=== PATIENT | female | born 1995 | race Caucasian/White ===

== ENCOUNTER → 2017-03-17 | Outpatient (CLI) | payer BC, MEDICAID, SELFPAY | PROVIDERS: Visit Provider Nurse Practitioner Family | DX: E55.9 Vitamin D deficiency, unspecified; E66.9 Obesity, unspecified; Z68.37 Body mass index [BMI] 37.0-37.9, adult; R53.83 Other fatigue | CPT/HCPCS: 80053; 80061; 82306; 83036; 84439; 84443; 85025 ==

== ENCOUNTER 2017-04-13 19:19 | Emergency (ER) | payer BC, MEDICAID, SELFPAY | END 2017-04-13 19:31 | disposition left against medical advice (07) | PROVIDERS: Emergency Provider Nurse Practitioner Family; Family Provider Internal Medicine Adolescent Medicine; Visit Provider Nurse Practitioner Family | DX: Z53.29 Procedure and treatment not carried out because of patient's decision for other reasons (principal) | CPT/HCPCS: 99211 ==

== ENCOUNTER 2019-11-21 07:35 | Emergency (ER) | payer BC, SELFPAY ==
[2019-11-21] VITALS (8 sets, daily range): BP systolic 112–135; BP diastolic 55–71; PULSE 58–107; RESP 16–22; TEMP 36.6; O2SAT 98–100; BMI 33.6
--- NOTE | 2019-11-21 07:55 | CT_ITS ---
PROCEDURE: CT ABDOMEN PELVIS W CON CLINICAL INDICATION: abd pain Upper abdominal pain COMPARISON: No exams were available for comparison TECHNIQUE: IV Contrast: 75ML OPTIRAY 350 Oral Contrast None Axial images obtained with sagittal and coronal reformats. All CT scans at the facility use one or more dose reduction, viz: automated exposure control, ma/kV adjustment per patient size (including targeted exams where dose is matched to indication, i.e. head), or iterative reconstruction technique. FINDINGS: LOWER THORAX: 4 mm noncalcified nodule in the left lower lobe nonspecific. ABDOMEN & PELVIS: The liver, gallbladder, spleen, adrenal glands, pancreas, and kidneys have an unremarkable appearance. No evidence of intestinal obstruction or free air. No evidence of appendicitis. There is a mild amount of retained colonic feces. No pelvic mass evident. There is a minimal amount of fluid in the pelvis nonspecific There is mild sclerosis of the SI joints on both sides IMPRESSION: 1. No acute abdominal or pelvic findings. 2. Mild amount of retained colonic feces. 3. Sacroiliitis 4. Nonspecific 4 mm left lower lobe nodule Dictated by: Alvaro Montes MD 11/21/2019 08:57 Electronically signed by Alvaro Montes MD in [place] 11/21/2019 08:57
[2019-11-21 08:04] LABS: Basophils # 0.1 K/mm3 (0-0.2); Basophils % 0.5 % (0.1-2.0); Eosinophils # 0.1 K/mm3 (0.0-0.4); Eosinophils % 0.9 % (0.1-12.0); Hematocrit 40.5 % (37.0-47.0); Hemoglobin 14.3 g/dL (12.2-16.2); Lymphocytes % 19.8 % (10-50); Mean Corpuscular HGB Conc 35.3 g/dL (31.8-35.4); Mean Corpuscular Volume 85.1 fl (81-99); Mean Platelet Volume 7.3 fl (7.4-10.4); Microscopic, Urine URINE MICROSCOPIC (MICROSCOPIC); Monocytes # 0.6 K/mm3 (0.1-1.0); Monocytes % 5.7 % (1.7-9.3); Neutrophils # 7.5 K/mm3 (1.8-7.8); Platelet Count 311 K/mm3 (142-424); Red Blood Count 4.76 M/mm3 (4.20-5.40); Red Cell Distribution Width 12.9 % (11.5-17.5); White Blood Count 10.3 K/mm3 (4.8-10.8)
[2019-11-21 08:06] LABS: Appearance,Urine CLEAR (Clear); Bilirubin,Urine Negative (Negative); Blood, Urine Negative (Negative); Color,Urine YELLOW (Yellow); Glucose,Urine (UA) Negative (Negative); Ketones,Urine Negative (Negative); Leukocyte Esterase,Urine Negative (Negative); Nitrate,Urine Negative (Negative); Protein,Urine Negative (Negative); Specific Gravity, Urine 1.025 (1.005-1.030); Urobilinogen,Urine 0.2 EU/dl (0.2)
[2019-11-21 08:08] LABS: Urine Pregnancy, HCG Qual. Negative (Negative)
[2019-11-21 08:10] LABS: Chloride 104 mmol/L (98-107); Potassium 3.8 mmoL/L (3.5-5.1); Sodium 138 mmol/L (136-145)
[2019-11-21 08:13] LABS: Alanine Aminotransferase 16 U/L (12-78); Alkaline Phosphatase 56 U/L (38-126); Amylase 718 U/L (30-110); Anion Gap 12.8 mEq/L (5-15); Aspartate Amino Transferase 24 U/L (14-36); Bilirubin,Total 2.1 mg/dl (0.2-1.3); Blood Urea Nitrogen 17 mg/dl (7-17); Calcium 9.4 mg/dl (8.4-10.2); Carbon Dioxide 25 mmol/L (22.0-30.0); Creatinine Clearance Estimated 223 mL/min (50-200); Estimated Glomerular Filt Rate 123 ml/min (>60); GFR (African American) 149 ML/MIN (>60); Glucose 100 mg/dl (74-100)
[2019-11-21 08:14] LABS: Albumin Level 4.7 g/dl (3.5-5.0); Albumin/Globulin Ratio 1.3 (1.1-1.8); Globulin 3.7 g/dL (1.3-3.2); Total Protein,Serum 8.4 g/dl (6.3-8.2)
[2019-11-21 08:18] LABS: RBC,Urine Occasional #/hpf (0-3)
[2019-11-21 08:38] LABS: Lipase 15842 U/L (23-300)
--- NOTE | 2019-11-21 08:40 | US_ITS ---
PROCEDURE: US GALLBLADDER CLINICAL INDICATION: pain Right upper quadrant pain COMPARISON: No exams were available for comparison FINDINGS: Pancreas: Unremarkable/Not well seen Liver: Unremarkable. There is appropriate direction of blood flow within a non dilated portal vein. Right kidney: Unremarkable appearing. No hydronephrosis. Gallbladder: No stones are evident. There is no gallbladder wall thickening. Common duct is normal in diameter. IMPRESSION: Negative gallbladder ultrasound. No stones evident. Dictated by: Alvaro Montes MD 11/21/2019 10:30 Electronically signed by Alvaro Montes MD in [place] 11/21/2019 10:30
--- NOTE | 2019-11-21 08:40 | PC.NURSE ---
Notified rad of need for GB US
--- NOTE | 2019-11-21 08:45 | HMH.EDABDPAI ---
ED Disposition Clinical Impression: Gallstone pancreatitis Disposition: Xfer Critical Access Hosp Condition on Discharge: Fair Referrals: Felipe Bowers MD [Primary Care Provider] - Time of Disposition: 12:18 - Critical Care Critical Care Time: No Attestation: On 11/21/19, the high probability of a clinically significant, sudden or life threatening deterioration of the following system(s) required my full and direct attention, intervention and personal management. The time I documented below is in addition to time spent performing reported procedures but includes the following listed in this critical care notation. Medical Decision Making - Medical Records Medical records reviewed: Yes: I reviewed the patient's medical records. - Behzad Inquiry Pt receiving controlled substance: Yes Behzad was queried for this patient: No Reason not queried -: Emergent pt cond-no time Risks and benefits of using a controlled substance: were discussed with pt by me Vital Signs: 11/21/19 07:36 11/21/19 09:06 11/21/19 09:33 Temperature 98 F Temperature Source Oral Pulse Rate [Right] 105 H 105 H 100 H Respiratory Rate 18 22 16 Blood Pressure [Right Arm] 135/70 121/71 126/66 Blood Pressure Mean [Right Arm] 91 87 86 Blood Pressure Source [Right Arm] Automatic Cuff Blood Pressure Position [Right Arm] Sitting 02 Sat by Pulse Oximetry 100 100 100 Oxygen Delivery Method Room Air 11/21/19 10:17 Temperature Temperature Source Pulse Rate [Right] 100 H Respiratory Rate 18 Blood Pressure [Right Arm] 119/68 Blood Pressure Mean [Right Arm] 85 Blood Pressure Source [Right Arm] Blood Pressure Position [Right Arm] 02 Sat by Pulse Oximetry 100 Oxygen Delivery Method - Lab Data Lab Results 11/21/19 07:45: Urine HCG, Qual Negative 11/21/19 07:55: Urine Color Yellow, Urine Appearance Clear, Urine pH 6.0, Ur Specific [place] 1.025, Urine Protein Negative, Urine Glucose (UA) Negative, Urine Ketones Negative, Urine Blood Negative, Urine Nitrate Negative, Urine Bilirubin Negative, Urine Urobilinogen 0.2, Ur Leukocyte Esterase Negative, Urine RBC Occasional, Urine WBC 3-5, Ur Squamous Epith Cells 5-10 11/21/19 07:55: WBC 10.3, RBC 4.76, Hgb 14.3, Hct 40.5, MCV 85.1, MCH 30.0, MCHC 35.3, RDW 12.9, Plt Count 311, MPV 7.3 L, Neut % (Auto) 73.0, Lymph % (Auto) 19.8, [place] % (Auto) 5.7, Eos % (Auto) 0.9, Baso % (Auto) 0.5, Neut # (Auto) 7.5, Lymph # (Auto) 2.0, [place] # (Auto) 0.6, Eos # (Auto) 0.1, Baso # (Auto) 0.1 11/21/19 07:55: Sodium 138, Potassium 3.8, Chloride 104, Carbon Dioxide 25, Anion Gap 12.8, BUN 17, Creatinine 0.60, Estimated Creat Clear 223, Estimated GFR 123, Est GFR ( Amer) 149, Glucose 100, Calcium 9.4, Total Bilirubin 2.1 H, AST 24, ALT 16, Alkaline Phosphatase 56, Total Protein 8.4 H, Albumin 4.7, Globulin 3.7 H, Albumin/Globulin Ratio 1.3, Amylase 718 H*, Lipase 13563 H Result diagrams: 11/21/19 07:55 11/21/19 07:55 Orders (Tests/Meds): ED MEDICATIONS Generic Name Dose Route Start Last Admin Trade Name Freq PRN Reason Stop Dose Admin Lactated Ringer's 1,000 mls @ 200 mls/hr 11/21/19 11:30 11/21/19 11:34 Lactated Ringer's 1000 Ml Bag IV 12/21/19 11:29 200 mls/hr .Q5H AUDIE Administration Sodium Chloride 8 ml 11/21/19 08:00 11/21/19 08:16 Sodium Chloride 0.9% 10ml Vial IV 12/21/19 07:59 8 ml NEEDED PRN Administration dilute pepcid Discontinued Medications Generic Name Dose Route Start Last Admin Trade Name Freq PRN Reason Stop Dose Admin Famotidine 20 mg 11/21/19 08:00 11/21/19 08:16 Pepcid 20mg/2ml Vial IV 11/21/19 08:01 20 mg ONCE ONE Administration Hydromorphone HCl 1 mg 11/21/19 10:52 11/21/19 10:56 Dilaudid 2mg/Ml Syringe IV 11/21/19 10:53 1 mg ONCE ONE Administration Sodium Chloride 1,000 mls @ 999 mls/hr 11/21/19 09:15 11/21/19 09:12 Sod Chlor 0.9% 1000ml Bag IV 11/21/19 10:15 999 mls/hr .Q1H1M AUDIE Administration Iover
--- NOTE | 2019-11-21 09:11 | PC.NURSE ---
US negative for US clare MD notified
--- NOTE | 2019-11-21 10:17 | PC.NURSE ---
Updated pt on POC, Dr brown paged at this time
--- NOTE | 2019-11-21 10:44 | PC.NURSE ---
speaking with Dr. Stauffer
--- NOTE | 2019-11-21 10:47 | PC.NURSE ---
MD at bedside updating pt
--- NOTE | 2019-11-21 10:55 | PC.NURSE ---
Calling [place] surgeon for Dr. HAMEED
--- NOTE | 2019-11-21 10:59 | PC.NURSE ---
speaking with Dr. HAMEED
--- NOTE | 2019-11-21 11:09 | PC.NURSE ---
Calling [facility] about transferring patient
--- NOTE | 2019-11-21 11:21 | PC.NURSE ---
speaking with Dr. Jordan from [facility]
--- NOTE | 2019-11-21 11:34 | PC.NURSE ---
Waiting conservation planner from hospitalist from [facility]. Pt resting. no needs at this time
--- NOTE | 2019-11-21 12:04 | PC.NURSE ---
called and check on status of hospitalist. she advised he was on the phone with another facility and would call us back next
--- NOTE | 2019-11-21 12:09 | PC.NURSE ---
speaking with Dr. Garrett
--- NOTE | 2019-11-21 12:16 | PC.NURSE ---
Dr Garrett accepted pt transfer, [facility] to call back with bed assignment
--- NOTE | 2019-11-21 12:53 | PC.NURSE ---
Called [facility] for an update on bed assignment, no changes, pt updated/
--- NOTE | 2019-11-21 13:43 | PC.NURSE ---
Speaking Yarsani about bed assignment and giving report
--- NOTE | 2019-11-21 13:53 | PC.NURSE ---
Pt to go POV with to [facility], report given to Sheila Gray. IV will be removed prior to d/c.
--- NOTE | 2019-11-21 14:15 | PC.NURSE ---
Pt remains in ED in waiting for instructions to arrive at the hospital, pt updated on POC
--- NOTE | 2019-11-21 15:17 | PC.NURSE ---
Pt d/c and given arrival instructions, IV removed, paper work given to .
== END 2019-11-21 15:16 | disposition critical access hospital (66) ==
PROVIDERS: Emergency Medicine; Emergency Provider Emergency Medicine; PCP Internal Medicine Adolescent Medicine
DX: K85.10 Biliary acute pancreatitis without necrosis or infection (principal); K21.9 Gastro-esophageal reflux disease without esophagitis
CPT/HCPCS: 74177; 76705; 80053; 81001; 81025; 82150; 83690; 85025; 96365; 96367; 96375; 96376; 99284; J2405; Q9967

== ENCOUNTER 2021-01-17 19:48 | Emergency (ER) | payer BC, SELFPAY ==
[2021-01-17 20:00] VITALS: BP 141/76; PULSE 91; RESP 16; TEMP 37; O2SAT 98; BMI 39.8
--- NOTE | 2021-01-17 20:15 | HMH.EDUTC ---
[facility] [place] Dis[place] Clinical Impression: Sinusitis Qualifiers: Sinusitis location: maxillary Chronicity: acute Recurrence: non-recurrent Qualified Code(s): J01.00 - Acute maxillary sinusitis, unspecified Disposition: Home, Self-Care Condition on Discharge: Good Instructions: Sinusitis, DI for Sinusitis Additional Instructions: Start antibiotic patient to take as ordered for a full length of time even if you feel better. Sinus infections do not get better overnight. It may take 2-3 days to notice much improvement so be sure to use conservative measures as discussed for symptoms. Flonase 1 spray each nostril daily to help with nasal congestion, sinus and ear pressure/information Increase fluids Humidifier/vaporizer as needed Tylenol and ibuprofen as needed for fever or pain. If symptoms do not improve or get worse return or be seen in the ER Follow-up with primary care this week Prescriptions: Azithromycin [Zithromax 250mg tab] 250 mg PO DIRECTED 4 Days #4 tab Transmission Status: Pending to [id number] Referrals: Felipe Bowers MD [Primary Care Provider] - Time of Disposition: 20:19 Medical Decision Making - Behzad Inquiry Pt receiving controlled substance: No [facility] [place] HPI - General Chief complaint: [facility] Stated complaint: runny nose, congestion Time Seen by Provider: 01/17/21 20:15 Mode of Arrival: Ambulatory Source of Information: Patient Limitations: No Limitations - History of Present Illness Provider Complaint: 25 yr old female presents for sinus pressure,congestion with green nasal drainage and pain in top teeth for 1 week. pt states she is - Related Data Previous Rx's Medication Instructions Recorded Azithromycin [Zithromax 250mg 250 mg PO DIRECTED 4 Days #4 tab 01/17/21 tab] Allergies Allergy/AdvReac Type Severity Reaction Status Date / Time No Known Allergies Allergy Verified 05/30/18 13:00 [facility] History - Hepatitis A Screen Attestation statement:: This patient has been screened for Hepatitis A risk factors. I have reviewed the patient's past medical history: Yes Medical History: Reports:: Gastroesophageal Reflux Disease(GERD) Denies:: Cancer, Diabetes Mellitus Type 1, Diabetes Mellitus Type 2, MRSA Other Surgeries: Yes: No Previous Surgery Amputation: No Fractures: No - Social History Alcohol Intake: never Occupational Status: employed ROS Obtained: Yes Systems reviewed as appropriate & no additional complaints - Constitutional Constitutional: Reports system reviewed and no additional complaints, except as docu, Denies fever(s) - Eyes Eyes: Reports system reviewed and no additional complaints, except as docu, Denies blind spots - ENT Ears, Nose, Mouth, and Throat: Reports system reviewed and no additional complaints, except as docu, Denies bleeding gums, Reports facial pain, Reports nasal congestion, Reports nasal discharge, Denies sore throat - Cardiovascular Cardiovascular: Reports system reviewed and no additional complaints, except as docu, Denies chest pain - Respiratory Respiratory: Reports system reviewed and no additional complaints, except as docu, Denies cough - Gastrointestinal Gastrointestingal: Reports: system reviewed and no additional complaints, except as docu. Denies: abdominal pain - Genitourinary Female Genitourinary: Reports system reviewed and no additional complaints, except as docu, Reports as per HPI - Musculoskeletal Musculoskeletal: Reports system reviewed and no additional complaints, except as docu, Denies joint pain - Integumentary/Breasts Skin/Breast: Reports system reviewed and no additional complaints, except as docu, Denies rash - Neurologic Neurologic: Reports system reviewed and no additional complaints, except as docu, Denies dizziness - Endocrine Endocrine: Reports system reviewed and no additional complaints, except as docu, Denies fatigue - Hematologic/Lymphatic Minna
[2021-01-17 20:19] VITALS: BP 141/76; PULSE 91; RESP 16; TEMP 37; O2SAT 98
== END 2021-01-17 20:45 | disposition home or self-care (01) ==
PROVIDERS: Emergency Provider Nurse Practitioner Family; PCP Internal Medicine Adolescent Medicine
DX: J01.00 Acute maxillary sinusitis, unspecified (principal); K21.9 Gastro-esophageal reflux disease without esophagitis
CPT/HCPCS: 99202; G0463

== ENCOUNTER 2021-08-16 18:04 | Emergency (ER) | payer BC, SELFPAY ==
[2021-08-16 18:06] VITALS: BP 144/77; PULSE 75; RESP 18; TEMP 37.1; O2SAT 95; BMI 37.1
--- NOTE | 2021-08-16 19:40 | HMH.EDUTC ---
[facility] [place] Impression: Sinusitis Qualifiers: Sinusitis location: unspecified location Chronicity: acute Recurrence: non-recurrent Qualified Code(s): J01.90 - Acute sinusitis, unspecified Otitis media Qualifiers: Otitis media type: suppurative Chronicity: acute Laterality: bilateral Recurrence: non-recurrent Spontaneous tympanic membrane rupture: without spontaneous rupture Qualified Code(s): H66.003 - Acute suppurative otitis media without spontaneous rupture of ear drum, bilateral Disposition: Home, Self-Care Condition on Discharge: Good Instructions: Middle Ear Infection, DI for Sinusitis Additional Instructions: Drink plenty of fluids. Take tylenol or ibuprofen for pain or fever. Take the medications as directed. Follow up with your regular doctor. GO TO THE ER FOR ANY WORSENING SYMPTOMS Prescriptions: Brompheniramine/Pseudoephed/Dm [Bromfed Dm Cough Syrup] 5 ml PO Q6HP PRN #240 ml PRN Reason: Cough Transmission Status: Received by [id number] predniSONE [Deltasone 10mg tablet] 10 mg PO BID 3 Days #6 tab Transmission Status: Received by [id number] Azithromycin [Z-Bashir 250mg Tab*] 250 mg PO UD DOSE PK #6 tab Transmission Status: Received by [id number] Referrals: Felipe Bowers MD [Primary Care Provider] - Time of Disposition: 19:54 Medical Decision Making - Medical Records Medical records reviewed: No: I reviewed the patient's medical records. - Bezhad Inquiry Pt receiving controlled substance: No Vital Signs: 08/16/21 18:06 08/16/21 20:52 Temperature 98.8 F 98.8 F Temperature Source Oral Oral Pulse Rate 75 Pulse Rate [Right Radial] 75 Respiratory Rate 18 18 Blood Pressure 144/77 H Blood Pressure [Right Arm] 144/77 H Blood Pressure Mean [Right Arm] 99 Blood Pressure Source Automatic Cuff Blood Pressure Source [Right Arm] Automatic Cuff Blood Pressure Position Sitting Blood Pressure Position [Right Arm] Sitting 02 Sat by Pulse Oximetry 95 Oxygen Delivery Method Room Air Room Air [facility] [place] - General Stated complaint: FRIETAS, ear ache,cough Time Seen by Provider: 08/16/21 19:40 Mode of Arrival: Ambulatory Source of Information: Patient Limitations: No Limitations Description of Symptoms (Recalled from Triage Doc. by RN): Pt stated that last monday ppl in her home tested positive for the flu. SHe states that she has ear pain, runy nose, FREITAS, and cough HEENT Symptoms (Recalled from RN notes): Yes Resp Symptoms (Recalled from RN notes): No Skin Symptoms (Recalled from RN notes): No MS Symptoms (Recalled from RN notes): No Functional Status (Recalled from RN notes): n/a - History of Present Illness Provider Complaint: Several people in her household have tested + for influenza. She states that over the past 2 to 3 days, she has had chillig, body ache and a dry cough. - Related Data Previous Rx's Medication Instructions Recorded Azithromycin [Z-Bashir 250mg Tab*] 250 mg PO UD DOSE PK #6 tab 08/16/21 Brompheniramine/Pseudoephed/Dm 5 ml PO Q6HP PRN #240 ml 08/16/21 [Bromfed Dm Cough Syrup] predniSONE [Deltasone 10mg tablet] 10 mg PO BID 3 Days #6 tab 08/16/21 Allergies Allergy/AdvReac Type Severity Reaction Status Date / Time No Known Allergies Allergy Verified 08/16/21 19:21 - Worker's Comp Is this a Worker's Comp case?: No [facility] History - Hepatitis A Screen Drug use history?: No High risk sexual behaviors?: No History of sexually transmitted infection?: No Currently employed?: No Childcare worker?: No Do you have indoor plumbing?: Yes Do you have electricity?: Yes Attestation statement:: This patient has been screened for Hepatitis A risk factors. I have reviewed the patient's past medical history: Yes Medical History: Reports:: Gastroesophageal Reflux Disease(GERD) Denies:: Cancer, Diabetes Mellitus Type 1, Diabetes Mellitus Type 2, MRSA Other Surgeries: Yes: No Previous Surgery Amputation:
[2021-08-16 20:52] VITALS: BP 144/77; PULSE 75; RESP 18; TEMP 37.1; O2SAT 95
== END 2021-08-16 20:52 | disposition home or self-care (01) ==
PROVIDERS: Emergency Provider Nurse Practitioner Family; PCP Internal Medicine Adolescent Medicine
DX: H66.003 Acute suppurative otitis media without spontaneous rupture of ear drum, bilateral (principal); J01.90 Acute sinusitis, unspecified; K21.9 Gastro-esophageal reflux disease without esophagitis

== ENCOUNTER 2022-06-13 18:59 | Emergency (ER) | payer OTHER, SELFPAY ==
[2022-06-13 19:10] VITALS: BP 123/77; PULSE 94; RESP 20; TEMP 37.1; O2SAT 100; BMI 39.1
--- NOTE | 2022-06-13 19:23 | EXP.UTC ---
Discharge Plan Disposition Patient Disposition: Home, Self-Care Condition: Good Prescriptions Prescriptions: New penicillin V potassium 500 mg tablet 500 mg PO BID 10 Days Qty: 20 0RF Referrals Follow up/Referrals: Felipe Bowers MD [Primary Care Provider] - See instructions Activity Restrictions/Add. Instructions Additional Instructions/Restrictions: *Monitor Temp, Over the counter Motrin or Tylenol as directed/as needed Tylenol every 4 hours and Motrin every 6 hours (as long as your family doctor has told you that you can take it) for fever or pain. and straight to ER if unable to lower temp less than 101.0 after medication given *Warm salt water gargles may help to soothe the throat *Throat Lozenges? *Warm fluids like tea with honey may help to soothe the throat? *Sleep elevated *Humidifier/Vaporizer *If you did not take Penicillin shot or was unable to, start taking antibiotic immediately and make sure that you take it for the FULL length of time although you should start to feel better in 24-48 hours *change toothbrush and toothpaste 24-48 hours after starting to take antibiotics so you do not reinfect yourself Monitor Temp. Tylenol and/or Ibuprofen as needed. ER if fever is no less than 101 despite alternating Tylenol and Ibuprofen * Encourage fluids, water, Gatorade, powerade, pedialyte if /toddler/or child *Cold fluids, popsicles and ice cream may feel good on his throat Follow up IMMEDIATELY for new or worsening symptoms or no Noticeable improvement over the next 48-72 hours. 911 for difficulty breathing or swallowing Clinical Impressions Clinical Impression: Strep throat Instructions Patient Instructions: DI for Strep Throat, Strep Throat Discharge [place] Provider[place] Shira Salomon [facility] [place] General Stated complaint: sore throat, nery Mode of Arrival: Ambulatory Source of Information: Patient Limitations: No Limitations Time Seen by Provider: 06/13/22 19:23 Description of Symptoms (Recalled from Triage Doc. by RN): PATIENT C/O SORE THROAT, HEADACHE, RUNNY NOSE AND COUGH X 1 WEEK HEENT Symptoms (Recalled from RN notes): Yes Resp Symptoms (Recalled from RN notes): Yes Skin Symptoms (Recalled from RN notes): No MS Symptoms (Recalled from RN notes): No Functional Status (Recalled from RN notes): WNL History of Present Illness Provider Complaint: Patient states that she has been having sore throat, cough, headache and runny nose for about a week State that today her throat was hurting worse so she came in to get checked Related Data Previous Rx's Medication Instructions Recorded penicillin V potassium 500 mg 500 mg PO BID 10 days #20 tabs 06/13/22 tablet Allergies Allergy/AdvReac Type Severity Reaction Status Date / Time No Known Allergies Allergy Verified 08/16/21 19:21 Worker's Comp Is this a Worker's Comp case?: No [facility] Disclaimer: The information contained in this section may have been updated after the patient was seen, as this information can be updated by other users. Medical History (Updated 06/13/22 @ 19:36 by Shira Salomon APRN) Depression Urinary tract infection Surgical History (Updated 06/13/22 @ 19:19 by France Baca RN) History of cholecystectomy History of tympanostomy tube placement Social History (Updated 06/13/22 @ 19:19 by France Baca RN) Smoking Status: Unknown if ever smoked alcohol intake: never current occupational status: employed Travel in the last 8 weeks: None ROS Obtained: Yes All systems reviewed & no additional complaints except as documented and Yes Systems reviewed as appropriate & no additional complaints except as documented Constitutional Constitutional: Reports system reviewed and no additional complaints, except as documented, Reports as per HPI and Reports headache(s) ENT Ears, Nose, Mouth, and Throat: Reports system reviewed and no additional complaints, except as documen
[2022-06-13 19:26] LABS: UTC Strep Screen (Rapid) Positive (Negative)
[2022-06-13 19:28] VITALS: BP 123/77; PULSE 94; RESP 20; TEMP 37.1; O2SAT 100
== END 2022-06-13 19:50 | disposition home or self-care (01) ==
PROVIDERS: Emergency Provider Nurse Practitioner; PCP Internal Medicine Adolescent Medicine
DX: J02.0 Streptococcal pharyngitis (principal)
CPT/HCPCS: 87880; 99212; 99213; G0463

== ENCOUNTER 2022-07-01 16:36 | Emergency (ER) | payer OTHER, SELFPAY ==
[2022-07-01 16:40] VITALS: BP 130/81; PULSE 101; RESP 18; TEMP 36.9; O2SAT 98; BMI 39.4
[2022-07-01 16:54] LABS: Apearance,Urine Clear (Clear); Bilirubin,Urine Negative (Negative); Blood, Urine 3+ (Negative); Color,Urine Yellow (Yellow); Glucose,Urine (UA) Negative (Negative); Ketones,Urine Negative (Negative); PH,Urine 5.5 (5.0-8.5); Protein,Urine Negative (Negative); Urobilinogen,Urine 0.2 EU/dl (0.2)
[2022-07-01 16:55] LABS: UTC Leukocyte Esterase,Urine Negative (Negative); UTC Nitrate,Urine Negative (Negative)
--- NOTE | 2022-07-01 17:07 | EXP.UTC ---
Discharge Plan Disposition Patient Disposition: Home, Self-Care Condition: Good Prescriptions Prescriptions: New benzonatate 100 mg capsule 100 mg PO TID PRN (Reason: cough) Qty: 30 0RF azithromycin [Zithromax Z-Bashir] 250 mg tablet See Rx Instructions .ROUTE .COMPLEX 5 Days Qty: 6 0RF Rx Instructions: For 250 mg dose pack: take 500 mg today (day 1), then 250 mg for 4 days (days 2-5) Referrals Follow up/Referrals: Felipe Bowers MD [Primary Care Provider] - See instructions Activity Restrictions/Add. Instructions Additional Instructions/Restrictions: *Monitor Temp, Over the counter Motrin or Tylenol as directed/as needed Tylenol every 4 hours and Motrin every 6 hours (as long as your family doctor has told you that you can take it) for fever or pain. and straight to ER if unable to lower temp less than 101.0 after medication given *Warm salt water gargles may help to soothe the throat *Throat Lozenges? *Warm fluids like tea with honey may help to soothe the throat? *Sleep elevated *Humidifier/Vaporizer Follow up IMMEDIATELY for new or worsening symptoms or no Noticeable improvement over the next 48-72 hours. 911 for difficulty breathing or swallowing Clinical Impressions Clinical Impression: URI (upper respiratory infection) Instructions Patient Instructions: Cough, DI for Sinusitis [place]charge [place]ira Sal[place] [facility] [place] Stated complaint: body aches, cough Mode of Arrival: Ambulatory Source of Information: Patient Limitations: No Limitations Time Seen by Provider: 07/01/22 17:07 Description of Symptoms (Recalled from Triage Doc. by RN): PATIENT C/O BODY ACHES, PRODUCTIVE COUGH, AND HEADACHE X 4 DAYS HEENT Symptoms (Recalled from RN notes): Yes Resp Symptoms (Recalled from RN notes): Yes Skin Symptoms (Recalled from RN notes): No MS Symptoms (Recalled from RN notes): No Functional Status (Recalled from RN notes): WNL History of Present Illness Provider Complaint: Patient states that she hasnt felt good for several days States that she has been having body aches, chills, headache and cough that at times is productive States that today she was still not feeling well and body aches was worse so she came in to get checked Related Data Previous Rx's Medication Instructions Recorded azithromycin 250 mg tablet See Rx Instructions PO .COMPLEX 5 07/01/22 (Zithromax Z-Bashir) days #6 tabs benzonatate 100 mg capsule 100 mg PO TID PRN cough #30 caps 07/01/22 Allergies Allergy/AdvReac Type Severity Reaction Status Date / Time No Known Allergies Allergy Verified 08/16/21 19:21 Worker's Comp Is this a Worker's Comp case?: No [facility] Disclaimer: The information contained in this section may have been updated after the patient was seen, as this information can be updated by other users. Medical History (Updated 07/01/22 @ 17:27 by Shira Salomon APRN) Depression Urinary tract infection Surgical History History of cholecystectomy History of tympanostomy tube placement Social History (Updated 07/01/22 @ 16:53 by France Baca RN) Smoking Status: Unknown if ever smoked alcohol intake: never current occupational status: employed Travel in the last 8 weeks: None ROS Obtained: Yes All systems reviewed & no additional complaints except as documented and Yes Systems reviewed as appropriate & no additional complaints except as documented Constitutional Constitutional: Reports system reviewed and no additional complaints, except as documented, Reports as per HPI, Reports body ache, Reports chills and Reports headache(s) ENT Ears, Nose, Mouth, and Throat: Reports system reviewed and no additional complaints, except as documented, Reports as per HPI and Reports headache(s) Cardiovascular Cardiovascular: Reports system reviewed and no additional complaints, except as documented and
[2022-07-01 17:13] LABS: UTC Influenza A Antigen Negative (Negative)
[2022-07-01 17:14] LABS: UTC Influenza B Antigen Negative (Negative)
[2022-07-01 17:31] VITALS: BP 130/81; PULSE 101; RESP 18; TEMP 36.9; O2SAT 98
== END 2022-07-01 17:32 | disposition home or self-care (01) ==
PROVIDERS: Emergency Provider Nurse Practitioner; PCP Internal Medicine Adolescent Medicine
DX: J06.9 Acute upper respiratory infection, unspecified (principal)
CPT/HCPCS: 81003; 87804; 99212; 99213; G0463

== ENCOUNTER 2022-09-14 13:45 | Emergency (ER) | payer OTHER, SELFPAY ==
[2022-09-14 13:54] VITALS: BP 147/84; PULSE 92; RESP 16; TEMP 36.4; O2SAT 100; BMI 36.0
--- NOTE | 2022-09-14 14:06 | EXP.UTC ---
Discharge Plan Disposition Patient Disposition: Home, Self-Care Condition: Good Prescriptions Prescriptions: New penicillin V potassium 500 mg tablet 500 mg PO BID Qty: 20 0RF No Action benzonatate 100 mg capsule 100 mg PO TID PRN (Reason: cough) Qty: 30 0RF azithromycin [Zithromax Z-Bashir] 250 mg tablet See Rx Instructions .ROUTE .COMPLEX 5 Days Qty: 6 0RF Rx Instructions: For 250 mg dose pack: take 500 mg today (day 1), then 250 mg for 4 days (days 2-5) Referrals Follow up/Referrals: Felipe Bowers MD [Primary Care Provider] - See instructions Activity Restrictions/Add. Instructions Additional Instructions/Restrictions: *Monitor Temp, Over the counter Motrin or Tylenol as directed/as needed Tylenol every 4 hours and Motrin every 6 hours (as long as your family doctor has told you that you can take it) for fever or pain. and straight to ER if unable to lower temp less than 101.0 after medication given *Warm salt water gargles may help to soothe the throat *Throat Lozenges? *Warm fluids like tea with honey may help to soothe the throat? *Sleep elevated *Humidifier/Vaporizer *If you did not take Penicillin shot or was unable to, start taking antibiotic immediately and make sure that you take it for the FULL length of time although you should start to feel better in 24-48 hours *change toothbrush and toothpaste 24-48 hours after starting to take antibiotics so you do not reinfect yourself Monitor Temp. Tylenol and/or Ibuprofen as needed. ER if fever is no less than 101 despite alternating Tylenol and Ibuprofen * Encourage fluids, water, Gatorade, powerade, pedialyte if /toddler/or child *Cold fluids, popsicles and ice cream may feel good on his throat Follow up IMMEDIATELY for new or worsening symptoms or no Noticeable improvement over the next 48-72 hours. 911 for difficulty breathing or swallowing Clinical Impressions Clinical Impression: Strep throat Stand Alone Forms Stand Alone Forms: Work/School Release Instructions Patient Instructions: DI for Strep Throat, Strep Throat Discharge ED Provider: Shira Salomon [facility] HPI General Stated complaint: FREITAS, sore throat Mode of Arrival: Ambulatory Source of Information: Patient Limitations: No Limitations Time Seen by Provider: 09/14/22 14:06 Description of Symptoms (Recalled from Triage Doc. by RN): pt c/o a FREITAS and sore throat x2d HEENT Symptoms (Recalled from RN notes): Yes Resp Symptoms (Recalled from RN notes): No Skin Symptoms (Recalled from RN notes): No MS Symptoms (Recalled from RN notes): No Functional Status (Recalled from RN notes): wnl History of Present Illness Provider Complaint: Patient states that she has been having headache and sore throat for the last couple of days States that today her throat was hurting worse so she came in Related Data Previous Rx's Medication Instructions Recorded azithromycin 250 mg tablet See Rx Instructions PO .COMPLEX 5 07/01/22 (Zithromax Z-Bashir) days #6 tabs benzonatate 100 mg capsule 100 mg PO TID PRN cough #30 caps 07/01/22 penicillin V potassium 500 mg 500 mg PO BID #20 tabs 09/14/22 tablet Allergies Allergy/AdvReac Type Severity Reaction Status Date / Time No Known Allergies Allergy Verified 09/14/22 13:56 Worker's Comp Is this a Worker's Comp case?: No [facility] Disclaimer: The information contained in this section may have been updated after the patient was seen, as this information can be updated by other users. Medical History (Updated 09/14/22 @ 14:21 by Shira Salomon APRN) Depression Urinary tract infection Surgical History History of cholecystectomy History of tympanostomy tube placement Social History (Updated 07/01/22 @ 16:53 by France Baca RN) Smoking Status: Unknown if ever smoked alcohol intake: never current occupational status: employed [employer]
[2022-09-14 14:12] LABS: UTC Strep Screen (Rapid) Positive (Negative)
[2022-09-14 14:26] VITALS: BP 147/84; PULSE 92; RESP 16; TEMP 36.4
== END 2022-09-14 14:27 | disposition home or self-care (01) ==
PROVIDERS: Emergency Provider Nurse Practitioner; PCP Internal Medicine Adolescent Medicine
DX: J02.0 Streptococcal pharyngitis (principal); R51.9 Headache, unspecified
CPT/HCPCS: 87880; 99212; 99214; G0463

== ENCOUNTER → 2022-11-14 11:47 | Outpatient (CLI) | payer OTHER, SELFPAY ==
--- NOTE | 2022-11-14 11:51 | XR_ITS ---
FINAL REPORT CLINICAL HISTORY: LEFT SHOULDER PAIN FINDINGS: LEFT SHOULDER SERIES Three views of the left shoulder were obtained. There is no acute fracture or dislocation. The joint spaces are preserved. There is no soft tissue abnormality. IMPRESSION: No acute abnormality. Reviewed, Interpreted and Dictated by Kaushal Fountain III, MD Transcribed by Pili Levy Authenticated and [facility]
== END ==
PROVIDERS: PCP Internal Medicine Adolescent Medicine; Visit Provider Nurse Practitioner Family
DX: M25.512 Pain in left shoulder (principal); G89.29 Other chronic pain
CPT/HCPCS: 73030

== ENCOUNTER 2023-03-13 10:30 | Emergency (ER) | payer OTHER, SELFPAY ==
[2023-03-13 10:40] VITALS: BP 132/64; PULSE 99; RESP 18; TEMP 36.8; O2SAT 98; BMI 38.3
[2023-03-13 10:47] LABS: Apearance,Urine Clear (Clear); Color,Urine Yellow (Yellow); Glucose,Urine (UA) Negative (Negative); PH,Urine 8.5 (5.0-8.5); Protein,Urine Negative (Negative)
[2023-03-13 10:48] LABS: Bilirubin,Urine Negative (Negative); Blood, Urine Negative (Negative); Ketones,Urine Negative (Negative); UTC Leukocyte Esterase,Urine Negative (Negative); UTC Nitrate,Urine Negative (Negative); Urobilinogen,Urine 4 EU/dl (0.2)
--- NOTE | 2023-03-13 10:51 | EXP.UTC ---
Discharge Plan Disposition Patient Disposition: Home, Self-Care Condition: Good Prescriptions Prescriptions: New phenazopyridine [Pyridium] 200 mg tablet 200 mg PO Q8H 2 Days Qty: 6 0RF sulfamethoxazole-trimethoprim [Bactrim DS] 800-160 mg Tablet 1 tab PO BID Qty: 14 0RF Referrals Follow up/Referrals: Fleipe Bowers MD [Primary Care Provider] - See instructions Activity Restrictions/Add. Instructions Additional Instructions/Restrictions: Drink plenty of fluids. Take tylenol or ibuprofen for pain or fever. Take the medications as directed. Follow up with your regular doctor. GO TO THE ER FOR ANY WORSENING SYMPTOMS The pyridium will make your urine turn orange, this is an expected side effect. It will stain your clothes if it comes into contact with them. We will culture the urine. That will tell what bacteria is causing your infection and which antibiotics will treat it best. Sometimes the first antibiotic we prescribe turns out to not work against different bacteria. So, make sure you follow up within 3 days if you are not getting better. Clinical Impressions Clinical Impression: UTI (urinary tract infection) Instructions Patient Instructions: Urinary Tract Infection, Urine Culture, DI for Urinary Tract Infection (UTI), Phenazopyridine Discharge ED Provider: Vadim Pulido [facility] General Stated complaint: burning when urinates Mode of Arrival: Ambulatory Source of Information: Patient Limitations: No Limitations Time Seen by Provider: 03/13/23 10:50 Description of Symptoms (Recalled from Triage Doc. by RN): Pt staes that she has bosy aches, back pain, and has stomach pain when she walks or urinates HEENT Symptoms (Recalled from RN notes): Yes Resp Symptoms (Recalled from RN notes): No Skin Symptoms (Recalled from RN notes): No MS Symptoms (Recalled from RN notes): No Functional Status (Recalled from RN notes): n/a History of Present Illness Provider Complaint: She states that she has had low back pain, dysuria, and lower abdominal discomfort for the past 24 hours. She gets uti's frequently and she states that this is how they all have started. Related Data Previous Rx's Medication Instructions Recorded phenazopyridine 200 mg tablet 200 mg PO Q8H 2 days #6 tabs 03/13/23 (Pyridium) sulfamethoxazole 800 1 tab PO BID #14 tabs 03/13/23 mg-trimethoprim 160 mg tablet (Bactrim DS) Allergies Allergy/AdvReac Type Severity Reaction Status Date / Time No Known Allergies Allergy Verified 03/13/23 10:44 Worker's Comp Is this a Worker's Comp case?: No [facility] Disclaimer: The information contained in this section may have been updated after the patient was seen, as this information can be updated by other users. Medical History (Updated 03/13/23 @ 11:26 by Vadim Pulido APRN) Depression Urinary tract infection Surgical History History of cholecystectomy History of tympanostomy tube placement Social History Smoking Status: Unknown if ever smoked alcohol intake: never current occupational status: employed Travel in the last 8 weeks: None ROS Obtained: Yes All systems reviewed & no additional complaints except as documented Constitutional Constitutional: Reports system reviewed and no additional complaints, except as documented, Denies chills and Denies fever(s) Eyes Eyes: Denies eye discharge ENT Ears, Nose, Mouth, and Throat: Denies dysphagia, Denies sore throat and Denies throat swelling Cardiovascular Cardiovascular: Denies chest pain and Denies dyspnea Respiratory Respiratory: Denies chest congestion, Denies cough and Denies dyspnea Gastrointestinal Gastrointestingal: Denies abdominal pain, constipation, diarrhea, dysphagia, nausea or vomiting Genitourinary Female Genitourinary: Reports as per HPI, Reports dysuria, Reports urinary frequency, Denie
[2023-03-13 11:30] VITALS: BP 132/64; PULSE 99; RESP 18; TEMP 36.8; O2SAT 98
== END 2023-03-13 11:30 | disposition home or self-care (01) ==
PROVIDERS: Emergency Provider Nurse Practitioner Family; PCP Internal Medicine Adolescent Medicine
DX: N39.0 Urinary tract infection, site not specified (principal); M54.59 Other low back pain; R10.30 Lower abdominal pain, unspecified
CPT/HCPCS: 81003; 87086; 99212; 99214; G0463

== ENCOUNTER 2023-06-16 07:30 | Emergency (ER) | payer OTHER, SELFPAY ==
[2023-06-16 07:32] VITALS: BP 135/74; PULSE 89; RESP 15; TEMP 36.9; O2SAT 99; BMI 36.6
[2023-06-16 07:50] LABS: Coronavirus 19, PCR Not Detected (NotDetected); Influenza A, PCR Not Detected (NotDetected); Influenza B, PCR Not Detected (NotDetected)
--- NOTE | 2023-06-16 07:52 | ED_ITS ---
Discharge Plan Disposition Patient Disposition: Home, Self-Care Prescriptions Prescriptions: New ondansetron 4 mg tablet,disintegrating 4 mg PO Q8H PRN (Reason: nausea and vomiting) 5 Days Qty: 12 0RF Referrals Follow up/Referrals: Felipe Bowers MD [Primary Care Provider] - See instructions Activity Restrictions/Add. Instructions Additional Instructions/Restrictions: You were evaluated in the emergency department today. Please sampler pickup prescription for Zofran and take as needed for nausea and vomiting. Eat a bland diet until your symptoms have resolved. Hydrate is much as possible. Return to the emergency department for new or worsening symptoms. Clinical Impressions Clinical Impression: Nausea vomiting and diarrhea Stand Alone Forms Stand Alone Forms: Work/School Release Instructions Patient Instructions: DI for Diarrhea and Traveler's Diarrhea -- Adult, DI for Nausea -- Adult Discharge ED Provider: Karlene Cesar General Adult HPI General Chief complaint: Nausea/Vomiting/Diarrhea Stated complaint: NA, VA AND Diarrhea Time Seen by Provider: 06/16/23 07:33 Mode of Arrival: Ambulatory Source of Information: Patient Limitations: No Limitations Description of Symptoms (Recalled from ER Triage Doc. by RN): 28 yo F presents to ED with c/o nausea, vomitting, diarrhea that began monday. this am pt reports sharp pain in right side. no fevers, cough. pt reports son diagnosed with flu b on monday. History of Present Illness HPI narrative: This patient is a 28-year-old female with history of prior cholecystectomy pre senting to the emergency department for evaluation with concern for nausea, vomiting, and diarrhea that started Monday. She states that this morning, she had a sharp pain in her right side. This resolved. She notes that she was vomiting on Monday, but she has not vomited since. She has continued to have nausea since, but her biggest concern is profuse, watery diarrhea that seems like it has been every few minutes. She notes she thinks she might of ate some bad chicken prior to onset of the symptoms. Her son at home has the flu. No other concerns noted at this time. Related Data Previous Rx's Medication Instructions Recorded ondansetron 4 mg disintegrating 4 mg PO Q8H PRN nausea and 06/16/23 tablet vomiting 5 days #12 tabs Allergies Allergy/AdvReac Type Severity Reaction Status Date / Time No Known Allergies Allergy Verified 06/16/23 07:49 [facility] Disclaimer: The information contained in this section may have been updated after the patient was seen, as this information can be updated by other users. Medical History Depression Urinary tract infection Surgical History History of cholecystectomy History of tympanostomy tube placement Social History Smoking Status: Never smoker alcohol intake: never current occupational status: employed Travel in the last 8 weeks: None ROS Obtained: Yes All systems reviewed & no additional complaints except as documented Physical Exam General General appearance: alert and in no apparent distress Head Head exam: atraumatic and normocephalic Eye Eye exam: Present normal appearance, PERRL and EOMI ENT ENT exam: Present normal exam, normal oropharynx, mucous membranes moist and normal external ear exam Neck Neck exam: Present normal inspection, full ROM and trachea midline; Absent tenderness Chest Chest inspection: Present normal inspection and symmetric chest wall rise; Absent tenderness Respiratory Respiratory exam: Present normal lung sounds bilaterally; Absent respiratory distress, wheezes, stridor or accessory muscle use Cardiovascular Cardiovascular exam: Present regular rate and normal rhythm Abdominal Exam Abdominal exam: Present soft; Absent distention, tenderness or guarding Extremities Exam Extremities exam: Present normal inspection, full ROM and normal capillary refill; Absent tenderness or edema Back Exam Back exam: Present normal inspection and full ROM; Absent tenderness Neurological Exam Neurological exam: Present alert, oriented X3, CN II-XII intact and normal gait; Absent motor sensory deficit Psychiatric Psychiatric exam: Present normal affect and normal mood Skin Skin exam: Present warm and dry Medical Decision Making Medical Records Medical records reviewed: Yes I reviewed the patient's medical records. Behzad Inquiry Pt receiving controlled substance: No Vital Signs: 06/16/23 07:32 06/16/23 09:00 06/16/23 09:45 Temperature 98.5 F 98.0 F Temperature Source Oral Pulse Rate 73 72 Pulse Rate [Left Radial] 89 Respiratory Rate 15 19 Blood Pressure 115/64 106/72 L Blood Pressure [Right Arm] 135/74 Blood Pressure Mean [Right Arm] 94 02 Sat by Pulse Oximetry 99 100 Oxygen Delivery Method Room Air Room Air Lab Data Lab results reviewed: Yes I reviewed the patient's lab results. Lab Results 06/16/23 07:44: Urine Color Yellow, Urine Appearance Cloudy, Urine pH 6.0, Ur Specific [place] >= 1.030, Urine Protein Trace, Urine Glucose (UA) Negative, Urine Ketones Trace, Urine Blood Negative, Urine Nitrate Positive, Urine Bilirubin Negative, Urine Urobilinogen 0.2, Ur Leukocyte Esterase 1+ A, Urine RBC 3-5, Urine WBC 10-20, Ur Squamous Epith Cells 20-50, Urine Bacteria 1+ 06/16/23 07:47: SARS-CoV-2 (PCR) Not detected, Influenza A Untype (PCR) Not detected, Influenza Type B (PCR) Not detected 06/16/23 08:10: WBC 7.8, RBC 5.29, Hgb 15.5, Hct 45.1, MCV 85.2, MCH 29.2, MCHC 34.3, RDW 14.1, Plt Count 292, MPV 7.6, Neut % (Auto) 71.6, Lymph % (Auto) 20.3, [place] % (Auto) 6.6, Eos % (Auto) 1.0, Baso % (Auto) 0.6, Neut # (Auto) 5.6, Lymph # (Auto) 1.6, [place] # (Auto) 0.5, Eos # (Auto) 0.1, Baso # (Auto) 0.1, Sodium 143, Potassium 4.0, Chloride 110 H, Carbon Dioxide 23, Anion Gap 14.0, BUN 14, Creatinine 0.60, Estimated Creat Clear 234, Estimated GFR 119, Est GFR ( Amer) 144, Glucose 96, Calcium 9.5, Total Bilirubin 1.2, AST 45 H, ALT 46, Alkaline Phosphatase 59, Total Protein 9.0 H, Albumin 5.0, Globulin 4.0 H, Albumin/Globulin Ratio 1.3, Lipase 49, Serum HCG, Qual Negative 06/16/23 08:48: Urine Color Yellow, Urine Appearance Clear, Urine pH 6.0, Ur Specific [place] 1.025, Urine Protein Negative, Urine Glucose (UA) Negative, Urine Ketones Negative, Urine Blood Negative, Urine Nitrate Negative, Urine Bilirubin Negative, Urine Urobilinogen 0.2, Ur Leukocyte Esterase Negative, Urine RBC 3-5, Urine WBC 5-10, Ur Squamous Epith Cells 10-20, Urine Bacteria 1+, Urine Mucus 1+ 06/16/23 08:10 06/16/23 08:10 Orders (Tests/Meds): ED MEDICATIONS Discontinued Medications Generic Name Dose Route Start Last Admin Trade Name Nikolay PRN Reason Stop Dose Admin Acetaminophen 1,000 mg 06/16/23 07:41 06/16/23 07:58 Acetaminophen 1,000mg/100ml Vial IV 06/16/23 07:42 1,000 mg ONCE ONE Administration Lactated Ringer's 1,000 mls @ 999 mls/hr 06/16/23 07:41 06/16/23 07:58 Lactated Ringer's 1000 Ml Bag IV 06/16/23 08:41 999 mls/hr .Q1H1M ONE Administration Ketorolac Tromethamine 15 mg 06/16/23 09:02 06/16/23 09:17 Ketorolac 30mg/Ml Vial IV 06/16/23 09:03 15 mg ONCE ONE Administration Ondansetron HCl 4 mg 06/16/23 07:41 06/16/23 07:58 Ondansetron 4mg/2ml Vial IV 06/16/23 07:42 4 mg ONCE ONE Administration ORDERS Category Date Time Status Complete Blood Count Auto Diff Stat Lab 06/16/23 08:10 Completed Comprehensive Metabolic Panel Stat Lab 06/16/23 08:10 Completed Diarrhea 23 Panel, PCR Stat Lab 06/16/23 07:41 Ordered HCG Qualitative, Serum Stat Lab 06/16/23 08:10 Completed Lipase Stat Lab 06/16/23 08:10 Completed Rapid PCR Covid and Flu A/B Stat Lab 06/16/23 07:47 Completed Urinalysis and Microscopic Routine Lab 06/16/23 08:48 Completed Urinalysis and Microscopic Stat Lab 06/16/23 07:44 Completed Urine Culture Stat Micro 06/16/23 07:44 Received Medical Decision Narrative: In summary, this patient is a 28-year-old female presenting to the Emergency Department for evaluation of nausea, vomiting, and diarrhea. Differential diagnoses considered include but are not limited to gastroenteritis, viral syndrome, colitis, dehydration, pancreatitis. Ruling out the most morbid conditions drove assessment. On exam, the patient is well-appearing with benign abdominal exam. I feel she most likely has infectious gastroenteritis at this time. Workup included CBC, CMP, lipase, viral swab, test, urinalysis, diarrhea panel. She was given a bolus of IV fluids as well as IV acetaminophen and Zofran. On reassessment, patient is resting comfortably and has had no vomiting while in the emergency department. Electrolytes are within normal limits. Initial urinalysis contaminated, subsequent urinalysis was sent was not concerning for infection. She also denies any urinary symptoms. Labs are reassuring with no significant leukocytosis. Given reassuring workup and exam, feel the patient is appropriate for discharge with instructions for supportive management of infectious gastroenteritis. She was given prescription for Zofran, instructions for close patient follow-up, strict return precautions, and she was discharged in stable condition after all questions were answered. Critical Care Critical Care Time Critical Care Time: No
[2023-06-16 07:54] LABS: Microscopic, Urine URINE MICROSCOPIC (MICROSCOPIC)
[2023-06-16] MEDS: LACTATED RINGERS 1000ML 1,000 ML 999 ML IV (07:58)
[2023-06-16] MEDS: ACETAMINOPHEN 1,000MG/100ML VIAL 1000 MG IV (07:58)
[2023-06-16] MEDS: ONDANSETRON 4MG/2ML VIAL 4 MG IV (07:58)
[2023-06-16 08:09] LABS: Bilirubin,Urine Negative (Negative); Blood, Urine Negative (Negative); Color,Urine YELLOW (Yellow); Glucose,Urine (UA) Negative (Negative); Ketones,Urine TRACE (Negative); Leukocyte Esterase,Urine 1+ (Negative); Nitrate,Urine POSITIVE (Negative); Protein,Urine TRACE (Negative); Specific Gravity, Urine >= 1.030 (1.005-1.030); Urobilinogen,Urine 0.2 EU/dl (0.2)
[2023-06-16 08:12] LABS: Appearance,Urine Cloudy (Clear)
[2023-06-16 08:19] LABS: Basophils # 0.1 K/mm3 (0-0.2); Basophils % 0.6 % (0.1-2.0); Eosinophils # 0.1 K/mm3 (0.0-0.4); Hematocrit 45.1 % (37.0-47.0); Hemoglobin 15.5 g/dL (12.2-16.2); Lymphocytes # 1.6 K/mm3 (0.7-4.5); Lymphocytes % 20.3 % (10-50); Mean Corpuscular HGB Conc 34.3 g/dL (31.8-35.4); Mean Corpuscular Hemoglobin 29.2 pg (27.0-31.2); Mean Corpuscular Volume 85.2 fl (81-99); Mean Platelet Volume 7.6 fl (7.4-10.4); Monocytes # 0.5 K/mm3 (0.1-1.0); Monocytes % 6.6 % (1.7-9.3); Neutrophils # 5.6 K/mm3 (1.8-7.8); Neutrophils % 71.6 % (37.0-80.0); Platelet Count 292 K/mm3 (142-424); Red Blood Count 5.29 M/mm3 (4.20-5.40); Red Cell Distribution Width 14.1 % (11.5-17.5); White Blood Count 7.8 K/mm3 (4.8-10.8)
[2023-06-16 08:24] LABS: Bacteria,Urine 1+ /lpf; Squamous Epithelial Cell,Urine 20-50 #/hpf (0-5)
[2023-06-16 08:29] LABS: Chloride 110 mmol/L (98-107); Sodium 143 mmol/L (136-145)
[2023-06-16 08:31] LABS: Blood Urea Nitrogen 14 mg/dl (7-17); Creatinine Clearance Estimated 234 mL/min (50-200); Estimated Glomerular Filt Rate 119 ml/min (>60); GFR (African American) 144 ML/MIN (>60)
[2023-06-16 08:32] LABS: Alanine Aminotransferase 46 U/L (12-78); Albumin/Globulin Ratio 1.3 (1.1-1.8); Alkaline Phosphatase 59 U/L (38-126); Aspartate Amino Transferase 45 U/L (14-36); Bilirubin,Total 1.2 mg/dl (0.2-1.3); Calcium 9.5 mg/dl (8.4-10.2); Carbon Dioxide 23 mmol/L (22.0-30.0); Glucose 96 mg/dl (74-100); Lipase 49 U/L (23-300)
[2023-06-16 08:44] LABS: HCG Qualitative, Serum Negative (Negative)
--- NOTE | 2023-06-16 08:58 | PC.NURSE ---
Rounded on pt. No needs or complaints voiced.
[2023-06-16 09:00] VITALS: BP 115/64; PULSE 73; O2SAT 100
[2023-06-16 09:07] LABS: Microscopic, Urine URINE MICROSCOPIC (MICROSCOPIC)
[2023-06-16] MEDS: KETOROLAC 30MG/ML VIAL 15 MG IV (09:17)
[2023-06-16 09:22] LABS: Appearance,Urine CLEAR (Clear); Bilirubin,Urine Negative (Negative); Blood, Urine Negative (Negative); Color,Urine YELLOW (Yellow); Glucose,Urine (UA) Negative (Negative); Ketones,Urine Negative (Negative); Leukocyte Esterase,Urine Negative (Negative); Nitrate,Urine Negative (Negative); Protein,Urine Negative (Negative); Specific Gravity, Urine 1.025 (1.005-1.030); Urobilinogen,Urine 0.2 EU/dl (0.2)
--- NOTE | 2023-06-16 09:23 | PC.NURSE ---
Pt given sprite and crackers for PO challenge
[2023-06-16 09:34] LABS: Bacteria,Urine 1+ /lpf; Mucus,Urine 1+ /lpf
[2023-06-16 09:45] VITALS: BP 106/72; PULSE 72; RESP 19; TEMP 36.7; O2SAT 100
== END 2023-06-16 09:51 | disposition home or self-care (01) ==
PROVIDERS: Emergency Provider Emergency Medicine; PCP Internal Medicine Adolescent Medicine
DX: R11.2 Nausea with vomiting, unspecified (principal); R19.7 Diarrhea, unspecified
CPT/HCPCS: 80053; 81001; 83690; 84703; 85025; 87086; 87636; 96361; 96374; 96375; 99285; J0131; J2405

== ENCOUNTER 2023-09-19 22:07 | Emergency (ER) | payer OTHER, SELFPAY ==
--- NOTE | 2023-09-19 22:05 | ECG_ITS ---
APPROVED REPORT Exam: Resting ECG HR:85 bpm ECG Measurements Heart Rate 85 AXES OK 186 P 57 QRSd 86 QRS 1 QT 344 T 17 QTc 387 Conclusion SINUS RHYTHM LOW QRS VOLTAGE IN PRECORDIAL LEADS [QRS DEFLECTION < 1.0 mV IN CHEST LEADS] BORDERLINE ECG UNCONFIRMED REPORT Electronically signed by : RAHEEL WETZEL, 09/20/2023 05:28:33
[2023-09-19 22:07] VITALS: BP 143/80; PULSE 100; RESP 20; TEMP 37.1; O2SAT 100; BMI 37.5
--- NOTE | 2023-09-19 22:14 | XR_ITS ---
PROCEDURE INFORMATION: Exam: XR Chest Exam date and time: 09/19/2023 10:22 PM Age: 28 years old Clinical indication: Other: Chest pain; Additional info: Cp TECHNIQUE: Imaging protocol: Radiologic exam of the chest. Views: 1 view. COMPARISON: CR XR SHOULDER LT MIN 2V 11/14/2022 11:53 AM FINDINGS: Lungs: Unremarkable. No consolidation. Pleural spaces: Unremarkable. No pleural effusion. No pneumothorax. Heart/Mediastinum: Unremarkable. No cardiomegaly. Bones/joints: Unremarkable. IMPRESSION: No acute findings.
[2023-09-19 22:16] VITALS: PULSE 100
--- NOTE | 2023-09-19 22:17 | ED_ITS ---
Discharge Plan Disposition Patient Disposition: Home, Self-Care Chief Complaint: Chest Pain Prescriptions Prescriptions: No Action ondansetron 4 mg tablet,disintegrating 4 mg PO Q8H PRN (Reason: nausea and vomiting) 5 Days Qty: 12 0RF Referrals Follow up/Referrals: Felipe Bowers MD [Primary Care Provider] - See instructions Clinical Impressions Clinical Impression: Chest pain Qualifiers: Chest pain type: unspecified Qualified Code(s): R07.9 - Chest pain, unspecified Discharge ED Provider: Nilton Glover [facility] General Chief Complaint: Chest Pain Stated Complaint: chest pain Time Seen by Provider: 09/19/23 22:10 Mode of Arrival: Ambulatory Source of Information: Patient Limitations: No Limitations Description of Symptoms (Recalled from ER Triage Doc. by RN): pt is having chest heaviness that goes into the right breast that started today, pt does have hx of anxiety and states she has been stressed lately nothing makes the heaviness better or worse History of Present Illness HPI narrative: Please note that above description of symptoms, in this electronic medical record under categorization of recalled from ER triage doctor by RN are reflective of an initial nursing assessment, however, is not reflective of my full history and physical exam that was personally taken and clarified. Consequentially, this preceding description of symptoms, which may include the patient's categorized chief complaint in the EMR, do not reflect my personal clinical impression, and the ultimate description of history of present illness and patient stated complaints should be deferred to this section of the note. Unless stated otherwise or congruent with this section of the note, additional signs, symptoms, or incongruence should be interpreted as inaccurate with my clinical impression. Related Data Previous Rx's Medication Instructions Recorded ondansetron 4 mg disintegrating 4 mg PO Q8H PRN nausea and 06/16/23 tablet vomiting 5 days #12 tabs Allergies Allergy/AdvReac Type Severity Reaction Status Date / Time No Known Allergies Allergy Verified 06/16/23 07:49 [facility] Disclaimer: The information contained in this section may have been updated after the patient was seen, as this information can be updated by other users. Medical History Depression Urinary tract infection Surgical History History of cholecystectomy History of tympanostomy tube placement Social History Smoking Status: Never smoker alcohol intake: never current occupational status: employed Travel in the last 8 weeks: None ROS Obtained: Yes All systems reviewed & no additional complaints except as documented Physical Exam General General appearance: alert Neck Neck exam: Present trachea midline Chest Chest inspection: Present normal inspection and symmetric chest wall rise Respiratory Respiratory exam: Present normal lung sounds bilaterally; Absent respiratory distress, wheezes, stridor, accessory muscle use or prolonged expiratory phase Cardiovascular Cardiovascular exam: Present regular rate and normal rhythm Extremities Exam Extremities exam: Absent edema Neurological Exam Neurological exam: Present alert, oriented X3 and CN II-XII intact Skin Skin exam: Present warm and dry; Absent cyanosis, diaphoresis or pallor HEART Score HEART Score HEART Score assessment performed?: Yes HEART Score: 0 Critical Care Critical Care Time Critical Care Time: No Medical Decision Making Medical Records Medical records reviewed: Yes I reviewed the patient's medical records. Behzad Inquiry Pt receiving controlled substance: No Behzad was queried for this patient: No Vital Signs Vital Signs: 09/19/23 22:07 09/19/23 22:16 Temperature 98.7 F Temperature Source Oral Pulse Rate 100 H Pulse Rate [Right Radial] 100 H Respiratory Rate 20 Blood Pressure [Right Arm] 143/80 H Blood Pressure Mean [Right Arm] 101 02 Sat by Pulse Oximetry 100 Oxygen Delivery Method Room Air Lab Data Labs: Lab Results 09/19/23 22:23: WBC 9.9, RBC 4.57, Hgb 13.2, Hct 39.9, MCV 87.3, MCH 28.9, MCHC 33.1, RDW 13.7, Plt Count 295, MPV 7.8, Neut % (Auto) 67.0, Lymph % (Auto) 25.6, [place] % (Auto) 5.6, Eos % (Auto) 1.0, Baso % (Auto) 0.7, Neut # (Auto) 6.6, Lymph # (Auto) 2.5, [place] # (Auto) 0.6, Eos # (Auto) 0.1, Baso # (Auto) 0.1, Sodium 139, Potassium 3.9, Chloride 106, Carbon Dioxide 23, Anion Gap 13.9, BUN 18 H, Creatinine 0.60, Estimated Creat Clear 240, Estimated GFR 119, Est GFR ( Amer) 144, Glucose 94, Calcium 9.9, Total Bilirubin 1.2, AST 34, ALT 35, Alkaline Phosphatase 63, Troponin I < 0.01, Total Protein 7.6, Albumin 4.5, Globulin 3.1, Albumin/Globulin Ratio 1.5, HCG, Quant < 2 09/19/23 22:23 09/19/23 22:23 Response Orders (Tests/Meds): ED MEDICATIONS Generic Name Dose Route Start Last Admin Trade Name Freq PRN Reason Stop Dose Admin Sodium Chloride 8 ml 09/19/23 22:15 Sodium Chloride 0.9% 10ml Vial IV 10/19/23 22:14 NEEDED PRN dilute pepcid Discontinued Medications Generic Name Dose Route Start Last Admin Trade Name Freq PRN Reason Stop Dose Admin Belladonna Alkaloids 60 ml 09/19/23 22:15 09/19/23 22:36 Belladonna Alkaloids 60 Ml Ml PO 09/19/23 22:16 60 ml ONCE ONE Administration Famotidine 20 mg 09/19/23 22:15 09/19/23 22:36 Famotidine 20mg/2ml Vial IV 09/19/23 22:16 20 mg ONCE ONE Administration ORDERS Category Date Time Status CXR --portable [XR chest portable] Stat Exams 09/19/23 22:14 Taken CBC w/Auto Diff [Complete Blood Count Auto Diff] Stat Lab 09/19/23 22:23 Completed CMP [Comprehensive Metabolic Panel] Stat Lab 09/19/23 22:23 Completed HCG,Quantitative Stat Lab 09/19/23 22:23 Completed Trop I [Troponin I] Stat Lab 09/19/23 22:23 Completed Troponin I Q3H Lab 09/20/23 01:15 Ordered Troponin I Q3H Lab 09/20/23 04:15 Ordered MDM Narrative Medical Decision Narrative: 28-year-old female history of anxiety and depression presenting with chest pain. Patient states that chest pain has been on and off since this morning, 09/18. Starts in the middle of her chest, sometimes over her right breast. Sharp and pressure in different spots on her chest. Associated nausea without vomiting, denies shortness of breath, diaphoresis, exacerbating or remitting factors. Not currently present. In past. No DVT or PE history. No recent illness. Patient does state that she has been under a lot of family stress recently. History was obtained via conversation with patient and visitor. On arrival, patient hemodynamically stable, alert, oriented x4, appropriate, GCS 15, moving all extremities spontaneously, pupils equal and reactive to light. Full physical exam performed and significant for anxious appearing girl in no acute distress. Nontachycardic, normotensive, lungs are clear to auscultation bilaterally anterior and posterior. Cardiac exam within normal limits. No lower extremity edema. Pulses equal and symmetric. Differential includes anxiety, gastric reflux, ACS, ID, coronary artery dissection, pneumothorax, PE, among others. Patient was given GI cocktail, Pepcid for symptomatic management and correction of underlying abnormalities. Workup independently interpreted and significant for nonactionable CBC or chemistry, negative troponin chest x-ray without acute cardiopulmonary airspace disease. See radiology read for full review of final results. Independent interpretation of EKG shows sinus rhythm 85 beats a minute no ST or T wave changes concerning for acute ischemia. CO, QRS, QT intervals within normal limits and axis normal. Patient placed on continuous cardiac monitoring and continuous pulse ox with initial blood pressure 143/80, saturation 20 breaths/min 100% on room air. Heart score 0. negative. Because patient at baseline without signs or symptoms of clinical decompensation, deemed appropriate for discharge. Results were relayed to patient who voiced understanding and were agreeable to outpatient management and follow up. I discussed my clinical impression with patient and answered all questions. At this time, the evidence for any other entities in the differential is insufficient to warrant any further testing or ED observation. This was explained as well. Advisory was given that persistent or worsening symptoms require further evaluation. I confirmed the understanding of this discussion.
[2023-09-19 22:32] LABS: Basophils # 0.1 K/mm3 (0-0.2); Basophils % 0.7 % (0.1-2.0); Eosinophils # 0.1 K/mm3 (0.0-0.4); Hematocrit 39.9 % (37.0-47.0); Hemoglobin 13.2 g/dL (12.2-16.2); Lymphocytes # 2.5 K/mm3 (0.7-4.5); Lymphocytes % 25.6 % (10-50); Mean Corpuscular HGB Conc 33.1 g/dL (31.8-35.4); Mean Corpuscular Hemoglobin 28.9 pg (27.0-31.2); Mean Corpuscular Volume 87.3 fl (81-99); Mean Platelet Volume 7.8 fl (7.4-10.4); Monocytes # 0.6 K/mm3 (0.1-1.0); Monocytes % 5.6 % (1.7-9.3); Neutrophils # 6.6 K/mm3 (1.8-7.8); Platelet Count 295 K/mm3 (142-424); Red Blood Count 4.57 M/mm3 (4.20-5.40); Red Cell Distribution Width 13.7 % (11.5-17.5); White Blood Count 9.9 K/mm3 (4.8-10.8)
[2023-09-19] MEDS: BELLADONNA ALKALOIDS 60 ML ML PO (22:36)
[2023-09-19] MEDS: FAMOTIDINE 20MG/2ML VIAL 20 MG IV (22:36)
[2023-09-19 22:39] LABS: Chloride 106 mmol/L (98-107); Potassium 3.9 mmoL/L (3.5-5.1); Sodium 139 mmol/L (136-145)
[2023-09-19 22:42] LABS: Alanine Aminotransferase 35 U/L (12-78); Albumin Level 4.5 g/dl (3.5-5.0); Albumin/Globulin Ratio 1.5 (1.1-1.8); Alkaline Phosphatase 63 U/L (38-126); Anion Gap 13.9 mEq/L (5-15); Aspartate Amino Transferase 34 U/L (14-36); Bilirubin,Total 1.2 mg/dl (0.2-1.3); Blood Urea Nitrogen 18 mg/dl (7-17); Calcium 9.9 mg/dl (8.4-10.2); Carbon Dioxide 23 mmol/L (22.0-30.0); Creatinine Clearance Estimated 240 mL/min (50-200); Estimated Glomerular Filt Rate 119 ml/min (>60); GFR (African American) 144 ML/MIN (>60); Globulin 3.1 g/dL (1.3-3.2); Glucose 94 mg/dl (74-100); Total Protein,Serum 7.6 g/dl (6.3-8.2)
[2023-09-19 23:00] LABS: Troponin I < 0.01 ng/ml (0.00-0.034)
[2023-09-19 23:06] LABS: HCG,Quantitative < 2 mIU/ml (0-5.42)
[2023-09-19 23:19] VITALS: BP 146/78; PULSE 89; RESP 20; TEMP 36.7; O2SAT 97
== END 2023-09-19 23:20 | disposition home or self-care (01) ==
PROVIDERS: Emergency Provider Emergency Medicine; PCP Internal Medicine Adolescent Medicine
DX: R07.9 Chest pain, unspecified (principal); R11.0 Nausea; F41.9 Anxiety disorder, unspecified; F32.A Depression, unspecified
CPT/HCPCS: 71045; 80053; 84484; 84702; 85025; 93005; 96374; 99284

== ENCOUNTER 2023-11-10 09:58 | Outpatient (CLI) | payer OTHER, SELFPAY ==
[2023-11-10 11:06] LABS: Alanine Aminotransferase 29 U/L (12-78); Albumin Level 4.3 g/dl (3.5-5.0); Albumin/Globulin Ratio 1.6 (1.1-1.8); Alkaline Phosphatase 49 U/L (38-126); Aspartate Amino Transferase 27 U/L (14-36); Bilirubin,Total 1.3 mg/dl (0.2-1.3); Blood Urea Nitrogen 14 mg/dl (7-17); Calcium 9.7 mg/dl (8.4-10.2); Carbon Dioxide 27 mmol/L (22.0-30.0); Chloride 105 mmol/L (98-107); Estimated Glomerular Filt Rate 119 ml/min (>60); GFR (African American) 144 ML/MIN (>60); Globulin 2.7 g/dL (1.3-3.2); Glucose 84 mg/dl (74-100); Sodium 138 mmol/L (136-145)
[2023-11-10 11:22] LABS: 25-OH Vitamin D, Total 21.2 ng/mL (30-100)
[2023-11-10 11:23] LABS: Free Thyroxine Index 2.6 ug/dL (5.93-13.13); Triiodothryronine (T3) Uptake 33 % (23.5-40.5)
[2023-11-10 11:31] LABS: HCG,Quantitative < 2 mIU/ml (0-5.42)
[2023-11-10 11:37] LABS: Thyroid Stimulating Hormone 0.81 uIU/mL (0.465-4.68)
[2023-11-10 11:41] LABS: Basophils % 0.4 % (0.1-2.0); Eosinophils % 0.7 % (0.1-12.0); Hematocrit 36.4 % (37.0-47.0); Hemoglobin 12.7 g/dL (12.2-16.2); Lymphocytes # 1.8 K/mm3 (0.7-4.5); Lymphocytes % 28.7 % (10-50); Mean Corpuscular HGB Conc 34.9 g/dL (31.8-35.4); Mean Corpuscular Hemoglobin 29.9 pg (27.0-31.2); Mean Corpuscular Volume 85.5 fl (81-99); Mean Platelet Volume 7.3 fl (7.4-10.4); Monocytes # 0.4 K/mm3 (0.1-1.0); Monocytes % 5.7 % (1.7-9.3); Neutrophils % 64.4 % (37.0-80.0); Platelet Count 269 K/mm3 (142-424); Red Blood Count 4.26 M/mm3 (4.20-5.40); Red Cell Distribution Width 13.4 % (11.5-17.5); White Blood Count 6.2 K/mm3 (4.8-10.8)
[2023-11-10 11:57] LABS: Vitamin B12 513 pg/mL (239-931)
[2023-11-10 12:32] LABS: Hemoglobin A1C 4.6 % (4.0-6.0)
== END 2023-11-10 23:59 | disposition home or self-care (01) ==
LOC: LAB 09:59
PROVIDERS: PCP Internal Medicine Adolescent Medicine; Visit Provider Internal Medicine Adolescent Medicine
DX: R04.2 Hemoptysis (principal); R53.81 Other malaise; R53.83 Other fatigue; N94.6 Dysmenorrhea, unspecified; R07.89 Other chest pain
CPT/HCPCS: 36415; 80050; 80053; 82306; 82533; 82607; 83036; 84436; 84443; 84479; 84702; 85025

== ENCOUNTER 2023-11-15 07:19 | Outpatient (CLI) | payer OTHER, SELFPAY | END 2023-11-15 23:59 | disposition home or self-care (01) | LOC: LAB 07:20 | PROVIDERS: PCP Internal Medicine Adolescent Medicine; Visit Provider Internal Medicine Adolescent Medicine | DX: R53.83 Other fatigue (principal) | CPT/HCPCS: 36415; 82533 ==

== ENCOUNTER 2023-11-17 07:43 | Outpatient (CLI) | payer OTHER, SELFPAY ==
[2023-11-18 18:09] LABS: Adrenocorticotropic Hormone 13.8 pg/mL (7.2-63.3)
== END 2023-11-17 23:59 | disposition home or self-care (01) ==
LOC: LAB 07:43
PROVIDERS: PCP Internal Medicine Adolescent Medicine; Visit Provider Internal Medicine Adolescent Medicine
DX: R53.83 Other fatigue (principal)
CPT/HCPCS: 36415; 82024

== ENCOUNTER 2023-11-24 13:37 | Outpatient (CLI) | payer OTHER, SELFPAY ==
--- NOTE | 2023-11-24 13:51 | CT_ITS ---
FINAL REPORT CLINICAL HISTORY: HEMOPTYSIS 75 CC OF ISOVUE 370 SLAINE FLUSH COMPARISON: None FINDINGS: Axial CT images of the chest were obtained with contrast. Coronal reformatted images were also obtained. This study was performed with techniques to keep radiation doses as low as reasonably achievable, (ALARA). Individualized dose reduction techniques using automated exposure control or adjustment of mA and/or KV according to the patient's size were employed. There is no evidence of mediastinal or hilar mass or adenopathy.No axillary mass or adenopathy is identified. On lung window images, no pulmonary mass or dominant pulmonary nodule is identified. There is a calcified granuloma in the right upper lobe. No localized pulmonary inflammatory process is identified. Limited images of the upper abdomen reveal no mass or localized inflammatory process. The patient is post cholecystectomy. IMPRESSION: No mass or localized inflammatory process. Reviewed, Interpreted and Dictated by Kaushal Fountain III, MD Transcribed by Aleta Price Authenticated and [facility]
[2023-11-24] MEDS: IOPAMIDOL-370 (76%);100ML BOTTLE 75 ML IV (14:17)
[2023-11-24] MEDS: SODIUM CHLORIDE 0.9% 10ML SYR (RAD ONLY) 10 ML IV (14:18)
== END 2023-11-24 23:59 | disposition home or self-care (01) ==
LOC: RAD 13:37
PROVIDERS: PCP Internal Medicine Adolescent Medicine; Visit Provider Internal Medicine Adolescent Medicine
DX: R04.2 Hemoptysis (principal)
CPT/HCPCS: 71260; Q9967

== ENCOUNTER 2024-03-10 13:34 | Emergency (ER) | payer OTHER, SELFPAY ==
[2024-03-10 13:45] VITALS: BP 126/80; PULSE 76; RESP 18; TEMP 36.7; O2SAT 98; BMI 41.1
--- NOTE | 2024-03-10 14:13 | ED_ITS ---
Discharge Plan Disposition Patient Disposition: Home, Self-Care Condition: Good Prescriptions Prescriptions: No Action diclofenac sodium 75 mg tablet,delayed release (DR/EC) 75 mg PO DAILY Patient Comments: TAKE 1 TABLET BY MOUTH ONCE DAILY ergocalciferol (vitamin D2) 1,250 mcg (50,000 unit) capsule 1,250 mcg PO DAILY escitalopram oxalate 20 mg tablet 20 mg PO DAILY Patient Comments: TAKE 1 TABLET BY MOUTH ONCE DAILY Referrals Follow up/Referrals: Felipe Bowers MD [Primary Care Provider] - See instructions Activity Restrictions/Add. Instructions Additional Instructions/Restrictions: If you still do not start follow up with OBGYN Return if needed Clinical Impressions Clinical Impression: Encounter for test with result negative Print Language Print Language: Cymraes Discharge ED Provider: Shira Salomon [facility] General Stated complaint: test Mode of Arrival: Ambulatory Source of Information: Patient Limitations: No Limitations Time Seen by Provider: 03/10/24 14:13 Description of Symptoms (Recalled from Triage Doc. by RN): PATIENT REQUESTING BLOOD TEST. SHE STATES SHE IS 10 DAYS LATE ON HER PERIOD AND HAD 5 NEGATIVE AT HOME TESTS HEENT Symptoms (Recalled from RN notes): No Resp Symptoms (Recalled from RN notes): No Skin Symptoms (Recalled from RN notes): No MS Symptoms (Recalled from RN notes): No Functional Status (Recalled from RN notes): WNL History of Present Illness Provider Complaint: Patient requesting blood test States that she is about 10 days late on her period States that she has taken 5 home test and they was negative but she is not typically late Related Data Home Medications ?Medication ?Instructions ?Recorded ?Confirmed diclofenac sodium 75 mg 75 mg PO DAILY 03/10/24 03/10/24 tablet,delayed release ergocalciferol (vitamin D2) 1,250 1,250 mcg PO DAILY 03/10/24 03/10/24 mcg (50,000 unit) capsule escitalopram oxalate 20 mg tablet 20 mg PO DAILY 03/10/24 03/10/24 Allergies Allergy/AdvReac Type Severity Reaction Status Date / Time No Known Allergies Allergy Verified 06/16/23 07:49 Worker's Comp Is this a Worker's Comp case?: No [facility] Disclaimer: The information contained in this section may have been updated after the patient was seen, as this information can be updated by other users. Medical History Depression Urinary tract infection Surgical History History of cholecystectomy History of tympanostomy tube placement Social History Smoking Status: Never smoker alcohol intake: never current occupational status: employed Travel in the last 8 weeks: None ROS Obtained: Yes All systems reviewed & no additional complaints except as documented and Yes Systems reviewed as appropriate & no additional complaints except as documented Constitutional Constitutional: Reports system reviewed and no additional complaints, except as documented and Reports as per HPI Eyes Eyes: Reports system reviewed and no additional complaints, except as documented and Reports as per HPI ENT Ears, Nose, Mouth, and Throat: Reports system reviewed and no additional complaints, except as documented and Reports as per HPI Cardiovascular Cardiovascular: Reports system reviewed and no additional complaints, except as documented and Reports as per HPI Respiratory Respiratory: Reports system reviewed and no additional complaints, except as documented and Reports as per HPI Gastrointestinal Gastrointestingal: Reports system reviewed and no additional complaints, except as documented and as per HPI Genitourinary Female Genitourinary: Reports system reviewed and no additional complaints, except as documented, Reports as per HPI and Reports amenorrhea Physical Exam General General appearance: alert and in no apparent distress ENT ENT exam: Present mucous membranes moist Respiratory Respiratory exam: Present normal lung sounds bilaterally; Absent respiratory distress or wheezes Cardiovascular Cardiovascular exam: Present regular rate, normal rhythm and normal heart sounds Abdominal Exam Abdominal exam: Present soft and normal bowel sounds; Absent distention, tenderness or guarding Neurological Exam Neurological exam: Present alert, oriented X3 and normal gait Medical Decision Making Medical Records Screening: Per USPSTF and CDC recommendations, given the prevalence of disease in our region, it is our hospital?s policy to screen for HIV and viral Hepatitis for all patients aged 18 and over and those with ongoing risk factors. Behzad Inquiry Pt receiving controlled substance: No Behzad was queried for this patient: No Vital Signs: 03/10/24 13:45 Temperature 98.1 F Temperature Source Oral Pulse Rate [Left Brachial] 76 Respiratory Rate 18 Blood Pressure [Left Arm] 126/80 Blood Pressure Mean [Left Arm] 95 Blood Pressure Source [Left Arm] Automatic Cuff Blood Pressure Position [Left Arm] Sitting 02 Sat by Pulse Oximetry 98 Oxygen Delivery Method Room Air Lab Data Lab results reviewed: Yes I reviewed the patient's lab results. Orders (Tests/Meds): ORDERS Category Date Time Status Serum [HCG Qualitative, Serum] Stat Lab 03/10/24 13:58 Received
[2024-03-10 14:37] LABS: HCG Qualitative, Serum Negative (Negative)
[2024-03-10 14:40] VITALS: BP 126/80; PULSE 76; RESP 18; TEMP 36.7; O2SAT 98
== END 2024-03-10 14:42 | disposition home or self-care (01) ==
PROVIDERS: Emergency Provider Nurse Practitioner; PCP Internal Medicine Adolescent Medicine
DX: Z32.02 Encounter for pregnancy test, result negative (principal)
CPT/HCPCS: 84703; 99213; G0381

== ENCOUNTER 2024-06-22 11:51 | Emergency (ER) | payer OTHER, SELFPAY ==
[2024-06-22] VITALS (7 sets, daily range): BP systolic 94–154; BP diastolic 61–92; PULSE 67–98; RESP 16–18; TEMP 36.7; O2SAT 98–100; BMI 39.1
--- NOTE | 2024-06-22 12:16 | ED_ITS ---
Discharge Plan Disposition Patient Disposition: Home, Self-Care Prescriptions Prescriptions: New promethazine 12.5 mg tablet 12.5 mg PO TID PRN (Reason: allergy symptoms) Qty: 20 0RF Rx Instructions: 3 doses during day; last dose no later than 4 hr before bedtime No Action diclofenac sodium 75 mg tablet,delayed release (DR/EC) 75 mg PO DAILY Patient Comments: TAKE 1 TABLET BY MOUTH ONCE DAILY ergocalciferol (vitamin D2) 1,250 mcg (50,000 unit) capsule 1,250 mcg PO DAILY escitalopram oxalate 20 mg tablet 20 mg PO DAILY Patient Comments: TAKE 1 TABLET BY MOUTH ONCE DAILY Referrals Follow up/Referrals: Felipe Bowers MD [Primary Care Provider] - See instructions Activity Restrictions/Add. Instructions Additional Instructions/Restrictions: Increase fluids and rest. Take nausea meds as needed for nausea. If any further symptoms or problems arise please return to the ED immediately. Please follow-up with your primary care provider next week. Clinical Impressions Clinical Impression: Nausea vomiting and diarrhea, Viral infection Instructions Patient Instructions: DI for Viral Syndrome, DI for Nausea -- Adult, DI for Vomiting -- Adult Print Language Print Language: Turkmen Discharge ED Provider: Gracy Martinez General Adult HPI <Mere Montana (ED), CASING MACHINE OPERATOR - Last Filed: 06/22/24 15:15> General Chief complaint: Abdominal Pain Stated complaint: vomiting, diarrhea, body aches, nauseous Time Seen by Provider: 06/22/24 12:56 Mode of Arrival: Ambulatory Source of Information: Patient Limitations: No Limitations Description of Symptoms (Recalled from ER Triage Doc. by RN): Patient presents ambulatory with smooth steady gait to triage. States she has been ill since . Denies seeking treatment prior to today. Endorses N/V/D. Denies blood in her vomit or stool. Denies any urinary symptoms. Endorses back pain that started when she started vomiting. Denies sick contacts. History of Present Illness HPI narrative: This is a 29-year-old female who presents to the ED today for complaint of diffuse sharp abdominal pain. She has been sick since . She started with vomiting and diarrhea. She vomited for the last time last night. She says she has had bodyaches and nausea as well no fever that she is aware of. No blood in stool or vomitus. Related Data Home Medications ?Medication ?Instructions ?Recorded ?Confirmed diclofenac sodium 75 mg 75 mg PO DAILY 03/10/24 06/22/24 tablet,delayed release ergocalciferol (vitamin D2) 1,250 1,250 mcg PO DAILY 03/10/24 06/22/24 mcg (50,000 unit) capsule escitalopram oxalate 20 mg tablet 20 mg PO DAILY 03/10/24 06/22/24 Previous Rx's ?Medication ?Instructions ?Recorded promethazine 12.5 mg tablet 12.5 mg PO TID PRN allergy 06/22/24 symptoms #20 tabs Allergies Allergy/AdvReac Type Severity Reaction Status Date / Time No Known Allergies Allergy Verified 06/16/23 07:49 PFS <Mere Montana (ED), CASING MACHINE OPERATOR - Last Filed: 06/22/24 15:15> [facility] Disclaimer: The information contained in this section may have been updated after the patient was seen, as this information can be updated by other users. Medical History Depression Urinary tract infection Surgical History History of cholecystectomy History of tympanostomy tube placement Social History Smoking Status: Never smoker alcohol intake: never current occupational status: employed Travel in the last 8 weeks: None Have you lived/traveled outside [place] in past 30 days?: No Contact w/someone who lives/traveled outside US past 30 days?: No Exposure to someone with infectious disease in past 14 days?: No Do you have a fever (greater than 100.4 F or 38 C)?: No Have you tested positive for COVID-19: No Exposed to someone with COVID-19 in past 14 days?: No Do you have a sore throat?: No Do you have a cough?: No Do you have any weakness?: No Do you have any diarrhea?: Yes Are you experiencing any unusual bleeding?: No Do you have any muscle aches/pain?: Yes Do you have any abdominal pain?: No Are you experiencing loss of taste or smell?: No Other Medical History Have you received the Flu Vaccine for this season: No Have you received the Pneumonia Vaccine: No <Mere Montana (ED), CASING MACHINE OPERATOR - Last Filed: 06/22/24 15:15> ROS Obtained: Yes Systems reviewed as appropriate & no additional complaints except as documented Constitutional Constitutional: Reports as per HPI Physical Exam <Mere Montana (ED), CASING MACHINE OPERATOR - Last Filed: 06/22/24 15:15> General General appearance: alert Comment: Complaining of abdominal pain. Head Head exam: atraumatic and normocephalic Eye Eye exam: Present normal appearance, PERRL and EOMI ENT ENT exam: Present normal exam, normal oropharynx and mucous membranes moist Neck Neck exam: Present normal inspection, full ROM and trachea midline Respiratory Respiratory exam: Present normal lung sounds bilaterally Cardiovascular Cardiovascular exam: Present regular rate, normal rhythm, normal heart sounds, +S1 and +S2 Abdominal Exam Abdominal exam: Present soft and normal bowel sounds Abdominal tenderness: Present diffuse (Soreness) Extremities Exam Extremities exam: Present normal inspection, full ROM and normal capillary refill Neurological Exam Neurological exam: Present alert, oriented X3 and normal gait Skin Skin exam: Present warm, dry and intact Medical Decision Making <Mere Montana (ED), CASING MACHINE OPERATOR - Last Filed: 06/22/24 15:15> Medical Records Screening: Per USPSTF and CDC recommendations, given the prevalence of disease in our region, it is our hospital?s policy to screen for HIV and viral Hepatitis for all patients aged 18 and over and those with ongoing risk factors. Behzad Inquiry Pt receiving controlled substance: No Behzad was queried for this patient: No Vital Signs: 06/22/24 11:52 06/22/24 12:04 06/22/24 12:32 Temperature 98.1 F Temperature Source Oral Pulse Rate 95 H 92 H Pulse Rate [Radial] 98 H Respiratory Rate 18 Blood Pressure 122/73 124/74 Blood Pressure [R Arm] 154/92 H Blood Pressure Mean [R Arm] 112 Blood Pressure Source Blood Pressure Source [R Arm] Automatic Cuff 02 Sat by Pulse Oximetry 98 100 98 Oxygen Delivery Method Room Air Room Air Room Air 06/22/24 13:30 06/22/24 14:00 06/22/24 14:30 Temperature Temperature Source Pulse Rate 87 86 79 Pulse Rate [Radial] Respiratory Rate Blood Pressure 94/61 L 97/62 L 99/63 L Blood Pressure [R Arm] Blood Pressure Mean [R Arm] Blood Pressure Source Blood Pressure Source [R Arm] 02 Sat by Pulse Oximetry 100 100 100 Oxygen Delivery Method Room Air Room Air Room Air 06/22/24 15:04 Temperature 98.1 F Temperature Source Oral Pulse Rate 67 Pulse Rate [Radial] Respiratory Rate 16 Blood Pressure 110/66 Blood Pressure [R Arm] Blood Pressure Mean [R Arm] Blood Pressure Source Automatic Cuff Blood Pressure Source [R Arm] 02 Sat by Pulse Oximetry Oxygen Delivery Method Room Air Lab Data Lab Results 06/22/24 12:00: SARS-CoV-2 (PCR) Not detected, Influenza A Untype (PCR) Not detected, Influenza Type B (PCR) Not detected 06/22/24 12:10: HCV Ab LAUREN w/Rflx PCR Qn Negative, HIV Ag/Ab Combo Qual Negative 06/22/24 12:15: WBC 7.7, RBC 5.15, Hgb 14.3, Hct 42.1, MCV 81.7, MCH 27.8, MCHC 34.0, RDW 13.1, Plt Count 288, MPV 9.6, Neut % (Auto) 74.6, Lymph % (Auto) 15.7, Whitfield % (Auto) 8.4, Eos % (Auto) 0.6, Baso % (Auto) 0.3, Neut # (Auto) 5.8, Lymph # (Auto) 1.2, Whitfield # (Auto) 0.7, Eos # (Auto) 0.1, Baso # (Auto) 0.0, Sodium 141, Potassium 3.3 L, Chloride 108 H, Carbon Dioxide 17 L, Anion Gap 19.3 H, BUN 14, Creatinine 0.60, Estimated Creat Clear 248, Estimated GFR 118, Est GFR ( Amer) 143, Glucose 127 H, Calcium 9.1, Total Bilirubin 1.4 H, AST 44 H, ALT 44, Alkaline Phosphatase 48, Troponin I < 0.01, Total Protein 8.2, Albumin 4.9, Globulin 3.3 H, Albumin/Globulin Ratio 1.5, Lipase 37 06/22/24 12:18: Urine Color Yellow, Urine Appearance Clear, Urine pH 6.0, Ur Specific Rillito 1.025, Urine Protein 1+ A, Urine Glucose (UA) Negative, Urine Ketones Negative, Urine Blood 2+ A, Urine Nitrate Negative, Urine Bilirubin 1+ A , Urine Urobilinogen 0.2, Ur Leukocyte Esterase 1+ A, Urine RBC Occasional, Urine WBC Occasional, Ur Squamous Epith Cells 3-5, Urine Bacteria None, Urine HCG, Qual Negative 06/22/24 12:15 06/22/24 12:15 Orders (Tests/Meds): ED MEDICATIONS Discontinued Medications Generic Name Dose Route Start Last Admin Trade Name Luisq PRN Reason Stop Dose Admin Sodium Chloride 1,000 mls @ 999 mls/hr 06/22/24 12:30 06/22/24 12:28 Sod Chlor 0.9% 1000ml Bag IV 06/22/24 13:30 999 mls/hr .Q1H1M AUDIE Administration Ketorolac Tromethamine 30 mg 06/22/24 12:21 06/22/24 12:28 Ketorolac 30mg/Ml Vial IV 06/22/24 12:22 30 mg ONCE ONE Administration Ondansetron HCl 4 mg 06/22/24 12:16 06/22/24 12:27 Ondansetron 4mg/2ml Vial IV 06/22/24 12:17 4 mg ONCE ONE Administration Potassium Chloride 40 meq 06/22/24 13:02 06/22/24 13:07 Potassium Chloride 20meq Tab PO 06/22/24 13:03 40 meq ONCE ONE Administration Promethazine HCl 12.5 mg 06/22/24 13:26 06/22/24 13:32 Promethazine Hcl 25mg/Ml 1ml Vial IV 06/22/24 13:27 12.5 mg ONCE ONE Administration Sodium Chloride 25 ml 06/22/24 13:26 06/22/24 13:32 Sodium Chloride 0.9% 25ml Bag IV 06/22/24 13:27 25 ml ONCE ONE Administration ORDERS Category Date Time Status CBC [Complete Blood Count Auto Diff] Stat Lab 06/22/24 12:15 Completed Comprehensive Metabolic Panel Stat Lab 06/22/24 12:15 Completed HIV Combo Stat Lab 06/22/24 12:10 Completed Hepatitis C Ab Qual. W/ RFX Stat Lab 06/22/24 12:10 Completed Lipase Stat Lab 06/22/24 12:15 Completed Rapid PCR Covid and Flu A/B Stat Lab 06/22/24 12:00 Completed Troponin I Stat Lab 06/22/24 12:15 Completed Urinalysis and Microscopic Stat Lab 06/22/24 12:18 Completed Urine , HCG Qual. Stat Lab 06/22/24 12:18 Completed Urine Culture Stat Micro 06/22/24 12:18 Received Medical Decision Narrative: Insert review patient is a 29-year-old female presenting to the emergency department for evaluation of bodyaches, nausea, vomiting and diarrhea since . She states that she has diffuse abdominal soreness. She says that the last time she vomited was . She says she continues to feel achy all over. She has surgical history of cholecystectomy.. Patient is hemodynamically stable and nontoxic-appearing upon arrival, afebrile. Differential diagnosis includes viral illness including flu, COVID, viral stomach illness, UTI, among others. Workup will be conducted with hematologic labs. Initial inventions include 1 L normal saline bolus, Toradol for pain and Zofran for nausea. Initial workup reviewed by me CBC showed no leukocytosis. CMP showed that her potassium was 3.3 this was treated with 40 mill equivalents of potassium orally. Urinalysis was nonspecific, I believe that urine is not indicative of an infection but more dehydration. No imaging was completed today was considered but I believe abdominal symptoms are more likely viral in nature. Upon repeat evaluation patient's pain is improved and nausea has improved after a dose of Zofran and Phenergan. I discussed with patient that this is likely viral in nature and that if any symptoms worsen or do not improve please return to the ED. Is safe for discharge home <Gracy Martinez MD - Last Filed: 06/22/24 15:45> Vital Signs: 06/22/24 11:52 06/22/24 12:04 06/22/24 12:32 Temperature 98.1 F Temperature Source Oral Pulse Rate 95 H 92 H Pulse Rate [Radial] 98 H Respiratory Rate 18 Blood Pressure 122/73 124/74 Blood Pressure [R Arm] 154/92 H Blood Pressure Mean [R Arm] 112 Blood Pressure Source Blood Pressure Source [R Arm] Automatic Cuff 02 Sat by Pulse Oximetry 98 100 98 Oxygen Delivery Method Room Air Room Air Room Air 06/22/24 13:30 06/22/24 14:00 06/22/24 14:30 Temperature Temperature Source Pulse Rate 87 86 79 Pulse Rate [Radial] Respiratory Rate Blood Pressure 94/61 L 97/62 L 99/63 L Blood Pressure [R Arm] Blood Pressure Mean [R Arm] Blood Pressure Source Blood Pressure Source [R Arm] 02 Sat by Pulse Oximetry 100 100 100 Oxygen Delivery Method Room Air Room Air Room Air 06/22/24 15:04 Temperature 98.1 F Temperature Source Oral Pulse Rate 67 Pulse Rate [Radial] Respiratory Rate 16 Blood Pressure 110/66 Blood Pressure [R Arm] Blood Pressure Mean [R Arm] Blood Pressure Source Automatic Cuff Blood Pressure Source [R Arm] 02 Sat by Pulse Oximetry Oxygen Delivery Method Room Air Lab Data Lab Results 06/22/24 12:00: SARS-CoV-2 (PCR) Not detected, Influenza A Untype (PCR) Not detected, Influenza Type B (PCR) Not detected 06/22/24 12:10: HCV Ab LAUREN w/Rflx PCR Qn Negative, HIV Ag/Ab Combo Qual Negative 06/22/24 12:15: WBC 7.7, RBC 5.15, Hgb 14.3, Hct 42.1, MCV 81.7, MCH 27.8, MCHC 34.0, RDW 13.1, Plt Count 288, MPV 9.6, Neut % (Auto) 74.6, Lymph % (Auto) 15.7, Whitfield % (Auto) 8.4, Eos % (Auto) 0.6, Baso % (Auto) 0.3, Neut # (Auto) 5.8, Lymph # (Auto) 1.2, Whitfield # (Auto) 0.7, Eos # (Auto) 0.1, Baso # (Auto) 0.0, Sodium 141, Potassium 3.3 L, Chloride 108 H, Carbon Dioxide 17 L, Anion Gap 19.3 H, BUN 14, Creatinine 0.60, Estimated Creat Clear 248, Estimated GFR 118, Est GFR ( Amer) 143, Glucose 127 H, Calcium 9.1, Total Bilirubin 1.4 H, AST 44 H, ALT 44, Alkaline Phosphatase 48, Troponin I < 0.01, Total Protein 8.2, Albumin 4.9, Globulin 3.3 H, Albumin/Globulin Ratio 1.5, Lipase 37 06/22/24 12:18: Urine Color Yellow, Urine Appearance Clear, Urine pH 6.0, Ur Specific Rillito 1.025, Urine Protein 1+ A, Urine Glucose (UA) Negative, Urine Ketones Negative, Urine Blood 2+ A, Urine Nitrate Negative, Urine Bilirubin 1+ A , Urine Urobilinogen 0.2, Ur Leukocyte Esterase 1+ A, Urine RBC Occasional, Urine WBC Occasional, Ur Squamous Epith Cells 3-5, Urine Bacteria None, Urine HCG, Qual Negative Orders (Tests/Meds): ED MEDICATIONS Discontinued Medications Generic Name Dose Route Start Last Admin Trade Name Freq PRN Reason Stop Dose Admin Sodium Chloride 1,000 mls @ 999 mls/hr 06/22/24 12:30 06/22/24 12:28 Sod Chlor 0.9% 1000ml Bag IV 06/22/24 13:30 999 mls/hr .Q1H1M AUDIE Administration Ketorolac Tromethamine 30 mg 06/22/24 12:21 06/22/24 12:28 Ketorolac 30mg/Ml Vial IV 06/22/24 12:22 30 mg ONCE ONE Administration Ondansetron HCl 4 mg 06/22/24 12:16 06/22/24 12:27 Ondansetron 4mg/2ml Vial IV 06/22/24 12:17 4 mg ONCE ONE Administration Potassium Chloride 40 meq 06/22/24 13:02 06/22/24 13:07 Potassium Chloride 20meq Tab PO 06/22/24 13:03 40 meq ONCE ONE Administration Promethazine HCl 12.5 mg 06/22/24 13:26 06/22/24 13:32 Promethazine Hcl 25mg/Ml 1ml Vial IV 06/22/24 13:27 12.5 mg ONCE ONE Administration Sodium Chloride 25 ml 06/22/24 13:26 06/22/24 13:32 Sodium Chloride 0.9% 25ml Bag IV 06/22/24 13:27 25 ml ONCE ONE Administration ORDERS Category Date Time Status CBC [Complete Blood Count Auto Diff] Stat Lab 06/22/24 12:15 Completed Comprehensive Metabolic Panel Stat Lab 06/22/24 12:15 Completed HIV Combo Stat Lab 06/22/24 12:10 Completed Hepatitis C Ab Qual. W/ RFX Stat Lab 06/22/24 12:10 Completed Lipase Stat Lab 06/22/24 12:15 Completed Rapid PCR Covid and Flu A/B Stat Lab 06/22/24 12:00 Completed Troponin I Stat Lab 06/22/24 12:15 Completed Urinalysis and Microscopic Stat Lab 06/22/24 12:18 Completed Urine , HCG Qual. Stat Lab 06/22/24 12:18 Completed Urine Culture Stat Micro 06/22/24 12:18 Received Medical Decision Narrative: Insert review patient is a 29-year-old female presenting to the emergency department for evaluation of bodyaches, nausea, vomiting and diarrhea since . She states that she has diffuse abdominal soreness. She says that the last time she vomited was . She says she continues to feel achy all over. She has surgical history of cholecystectomy.. Patient is hemodynamically stable and nontoxic-appearing upon arrival, afebrile. Differential diagnosis includes viral illness including flu, COVID, viral stomach illness, UTI, among others. Workup will be conducted with hematologic labs. Initial inventions include 1 L normal saline bolus, Toradol for pain and Zofran for nausea. Initial workup reviewed by me CBC showed no leukocytosis. CMP showed that her potassium was 3.3 this was treated with 40 mill equivalents of potassium orally. Urinalysis was nonspecific, I believe that urine is not indicative of an infection but more dehydration. No imaging was completed today was considered but I believe abdominal symptoms are more likely viral in nature. Upon repeat evaluation patient's pain is improved and nausea has improved after a dose of Zofran and Phenergan. I discussed with patient that this is likely viral in nature and that if any symptoms worsen or do not improve please return to the ED. Is safe for discharge home Martinez: I was consulted by the RONNIE, and we discussed the complexity of problems being addressed. I approved the treatment and management plan for this patient's care in the emergency department, thus performing a substantial portion of the medical decision making. I personally evaluated the patient. Abdominal exam is benign without guarding or rebound, will I did consider the possibility of acute intra-abdominal pathology such as appendicitis, cholelithiasis, cholecystitis, her diffuse discomfort without focal symptoms and her other associated symptoms of bodyaches are more consistent with viral syndrome at this time. I do not believe imaging is indicated. Labs reviewed by me are nonactionable aside from trace hypokalemia that was treated with oral repletion. Labs are significantly reassuring against acute intra-abdominal pathology and since she has had symptomatic resolution and is tolerating oral intake in the ER, I believe patient is appropriate for discharge at this time. Patient was given instructions on symptomatic management, follow up instructions, and return precautions for the emergency department. Patient indicated understanding and was discharged in stable condition. Gracy Martinez MD Critical Care <Mere Montana (ED), CASING MACHINE OPERATOR - Last Filed: 06/22/24 15:15> Critical Care Time Critical Care Time: No
[2024-06-22 12:26] LABS: Coronavirus 19, PCR Not Detected (NotDetected); Influenza A, PCR Not Detected (NotDetected); Influenza B, PCR Not Detected (NotDetected)
[2024-06-22] MEDS: ONDANSETRON 4MG/2ML VIAL 4 MG IV (12:27)
[2024-06-22 12:28] LABS: Microscopic, Urine URINE MICROSCOPIC (MICROSCOPIC)
[2024-06-22] MEDS: KETOROLAC 30MG/ML VIAL 30 MG IV (12:28)
[2024-06-22] MEDS: 0.9 % SODIUM CHLORIDE 1000ML 1,000 ML 999 ML IV (12:28)
[2024-06-22 12:32] LABS: Basophils % 0.3 % (0.1-2.0); Eosinophils # 0.1 K/mm3 (0.0-0.4); Eosinophils % 0.6 % (0.1-12.0); Hematocrit 42.1 % (37.0-47.0); Hemoglobin 14.3 g/dL (12.2-16.2); Lymphocytes # 1.2 K/mm3 (0.7-4.5); Lymphocytes % 15.7 % (10-50); Mean Corpuscular Hemoglobin 27.8 pg (27.0-31.2); Mean Corpuscular Volume 81.7 fl (81-99); Mean Platelet Volume 9.6 fl (7.4-10.4); Monocytes # 0.7 K/mm3 (0.1-1.0); Monocytes % 8.4 % (1.7-9.3); Neutrophils # 5.8 K/mm3 (1.8-7.8); Neutrophils % 74.6 % (37.0-80.0); Platelet Count 288 K/mm3 (142-424); Red Blood Count 5.15 M/mm3 (4.20-5.40); Red Cell Distribution Width 13.1 % (11.5-17.5); White Blood Count 7.7 K/mm3 (4.8-10.8)
[2024-06-22 12:33] LABS: Appearance,Urine CLEAR (Clear); Blood, Urine 2+ (Negative); Color,Urine YELLOW (Yellow); Glucose,Urine (UA) Negative (Negative); Ketones,Urine Negative (Negative); Leukocyte Esterase,Urine 1+ (Negative); Nitrate,Urine Negative (Negative); Protein,Urine 1+ (Negative); Specific Gravity, Urine 1.025 (1.005-1.030); Urobilinogen,Urine 0.2 EU/dl (0.2)
[2024-06-22 12:34] LABS: Albumin Level 4.9 g/dl (3.5-5.0); Chloride 108 mmol/L (98-107); Sodium 141 mmol/L (136-145)
[2024-06-22 12:34] LABS: Urine Pregnancy, HCG Qual. Negative (Negative)
[2024-06-22 12:35] LABS: Potassium 3.3 mmoL/L (3.5-5.1)
[2024-06-22 12:37] LABS: Alanine Aminotransferase 44 U/L (12-78); Albumin/Globulin Ratio 1.5 (1.1-1.8); Alkaline Phosphatase 48 U/L (38-126); Anion Gap 19.3 mEq/L (5-15); Aspartate Amino Transferase 44 U/L (14-36); Bilirubin,Total 1.4 mg/dl (0.2-1.3); Blood Urea Nitrogen 14 mg/dl (7-17); Carbon Dioxide 17 mmol/L (22.0-30.0); Creatinine Clearance Estimated 248 mL/min (50-200); Estimated Glomerular Filt Rate 118 ml/min (>60); GFR (African American) 143 ML/MIN (>60); Globulin 3.3 g/dL (1.3-3.2); Total Protein,Serum 8.2 g/dl (6.3-8.2)
[2024-06-22 12:38] LABS: Calcium 9.1 mg/dl (8.4-10.2); Glucose 127 mg/dl (74-100); Lipase 37 U/L (23-300)
[2024-06-22 12:50] LABS: Troponin I < 0.01 ng/ml (0.00-0.034)
[2024-06-22] MEDS: POTASSIUM CHLORIDE 20MEQ TAB 40 MEQ PO (13:07)
[2024-06-22 13:20] LABS: Bilirubin,Urine 1+ (Negative)
[2024-06-22 13:21] LABS: RBC,Urine Occasional #/hpf (0-3); WBC,Urine Occasional #/hpf (0-3)
[2024-06-22] MEDS: PROMETHAZINE HCL 25MG/ML 1ML VIAL 12.5 MG IV (13:32)
[2024-06-22] MEDS: SODIUM CHLORIDE 0.9% 25ML BAG 25 ML IV (13:32)
[2024-06-22 13:48] LABS: HIV Combo NEGATIVE (Negative)
[2024-06-22 14:18] LABS: Hepatitis C Ab Qual. W/ RFX NEGATIVE (Negative)
--- NOTE | 2024-06-25 10:46 | PC.NURSE ---
Urine culture discussed with due to labs, no treatment is indicated at this time
== END 2024-06-22 15:23 | disposition home or self-care (01) ==
PROVIDERS: Nurse Practitioner; Emergency Provider Emergency Medicine; PCP Internal Medicine Adolescent Medicine
DX: B34.9 Viral infection, unspecified (principal); R11.2 Nausea with vomiting, unspecified; R19.7 Diarrhea, unspecified; M54.9 Dorsalgia, unspecified; R10.9 Unspecified abdominal pain; M79.10 Myalgia, unspecified site; Z11.52 Encounter for screening for COVID-19
CPT/HCPCS: 80053; 81001; 81025; 83690; 84484; 85025; 86803; 87086; 87088; 87186; 87389; 87636; 96361; 96374; 96375; 99283; J1885; J2405; J2550; J7030